=== PATIENT | male | born 1990 | race Caucasian/White ===

== ENCOUNTER 2022-04-09 16:47 | Emergency (ER) | payer MEDICAID, SELFPAY ==
--- NOTE | ~2022-04-09 | CT_ITS ---
EXAMINATION: CT ABDOMEN AND PELVIS WITHOUT CONTRAST CLINICAL INFORMATION: Right-sided flank pain, dysuria. COMPARISON: None TECHNIQUE: Multidetector volumetric imaging was performed from the superior aspect of the liver through the pubic symphysis. Sagittal and coronal reformatted images were obtained on the technologist's workstation. Plaque of intravenous and oral contrast limits visceral evaluation. This CT examination was performed using dose optimization techniques as appropriate, variously including the following: *Automated exposure control *Adjustment of mA and/or kV according to patient size (this includes techniques or standardized protocols for targeted exams where dose is matched to indication/reason for exam; i.e. extremities or head) *Use of iterative reconstruction technique DLP: 705 mGy-cm FINDINGS: LUNG BASES: The visualized lung bases are unremarkable. LIVER, GALLBLADDER, AND BILIARY TREE: Unremarkable. PANCREAS: Unremarkable. SPLEEN: Unremarkable. ADRENAL GLANDS: Unremarkable. KIDNEYS AND URETERS: The kidneys are normal in size, shape, and attenuation. No hydronephrosis, hydroureter, or calculi seen. No perinephric stranding. BLADDER: A 0.5 cm calculus is seen at or just distal to the right ureterovesical junction (image 74, series 3; image 45, series 6). GASTROINTESTINAL TRACT: The stomach and small bowel and appendix are unremarkable. The colon and rectum are unremarkable. ABDOMINAL WALL: No significant hernia is appreciated. LYMPH NODES: No lymphadenopathy. VASCULAR: Unremarkable. PELVIC VISCERA: Unremarkable. OSSEOUS STRUCTURES: L5-S1 moderate disc space narrowing. Mild disc space narrowing at L4-L5. The vertebral bodies are intact. CT/CT abdomen pelvis wo con IMPRESSION: 1. 0.5 cm radiopaque density at or just distal to the right ureterovesical junction without sequelae of obstruction in the right ureter and kidney system with a nonobstructing calculus. No other significant abnormality. Fleischner guidelines were followed.
[2022-04-09 16:53] VITALS: BP 130/78; PULSE 88; RESP 16; TEMP 36.6; O2SAT 97; BMI 29.5
[2022-04-09 17:15] LABS: Appearance Urine CLEAR; Color Urine YELLOW; Glucose Urine UA NEG (NEG); Leukocyte Esterase Urine NEG (NEG); Nitrite Urine NEG (NEG); Specific Gravity - Urine 1.025 (1.005-1.025); UACC Culture Trigger NO; Urine Blood 1+ (NEG); Urine Ketones 5 MG/DL (NEG); Urine Protein NEG (NEG-TRACE)
[2022-04-09 17:26] LABS: Mucus Urine TRACE /LPF; Squamous Epithelial Cell Urine TRACE /LPF; WBC Urine 0-2 /HPF (0-4)
--- NOTE | 2022-04-09 21:51 | ED_ITS ---
HPI - Male Genitourinary General Chief complaint: Urogenital-Male Stated complaint: ?kidney stone per urgent care Time Seen by Provider: 04/09/22 21:43 Source: patient Mode of arrival: ambulatory History of Present Illness HPI Narrative: 32 yo male with no medical history presents to the ER with 5-6 days of right- sided flank pain. He states the pain started in his right lower side, with 10/10 intensity. It has been coming and going for the last few days but he has been putting up going to the hospital. He states the pain has migrated into his suprapubic area and he now has burning upon urination. He has not noticed any blood in his urine. He denies any urethral discharge or concern for STI he has same sexual partner for the last 10 years. He denies any fever or chills, nausea, vomiting. MD Complaint: dysuria and other ( Right-sided flank pain) Onset (ago): day(s) Duration: progressively worsening Location: right flank Radiation: right inguinal region and abdomen Severity: severe Severity scale (1-10): 8 Quality: aching and burning Relieving factors: none Exacerbating factors: urination Associated symptoms: Reports dysuria Related Data Sexually active: Yes Previous Rx's Medication Instructions Recorded naproxen 500 mg tablet 500 mg PO BID PRN pain #20 tabs 04/09/22 prednisone 20 mg tablet 40 mg PO DAILY #8 tabs 04/09/22 tamsulosin 0.4 mg capsule (Flomax) 0.4 mg PO BEDTIME #7 caps 04/09/22 Allergies Allergy/AdvReac Type Severity Reaction Status Date / Time No Known Allergies Allergy Unverified 07/05/20 17:02 Review of Systems Review of Systems: Constitutional: No Fever, No Chills ENT/Mouth: No sore throat, No Rhinorrhea Cardiovascular: No Chest Pain, No SOB Respiratory: No Cough, No Sputum, No Wheezing, No dyspnea Gastrointestinal: No Nausea, No Vomiting, No Diarrhea, + abdominal Pain, No Hematochezia, No Melena Genitourinary: + Dysuria, No Urinary Frequency, No Hematuria Musculoskeletal: No joint pain, No Myalgias Skin: No Skin Lesions, No rash Neuro: No Weakness, No Numbness, No Dizziness, No Headache Psych: + Anxiety/Panic, No Depression Heme/Lymph: No Bruising, No Lymphadenopathy Endocrine: No Polyuria, No Polydipsia [facility] Social History Social History Alcohol intake: never Patient Tobacco Use Status: Former Tobacco user Use of substances other than those prescribed or required for medical reasons: Yes Substance Use Type: Marijuana Substance Use Frequency: Chronic Longstanding Advance Directives: No Advance Directives Information Provided: Yes Physical Exam Vital Signs: Vital Signs: Last Vital Signs Temp 97.8 F 04/09/22 16:53 Pulse 78 04/09/22 22:41 Resp 18 04/09/22 22:41 BP 135/81 04/09/22 22:41 Pulse Ox 98 04/09/22 22:41 O2 Del Method 04/09/22 22:41 BMI result Body Mass Index 29.5 Appearance: Alert. Oriented X3. No acute distress. appears well Eyes: Pupils equal, round and reactive to light. ENT: Pharynx normal. Neck: Normal inspection. Neck supple. CVS: Normal heart rate and rhythm. Pulses normal. Respiratory: No respiratory distress. Breath sounds normal. Abdomen: Soft with mild suprapubic tenderness. No right lower quadrant tenderness. No CVA tenderness.+BS x4. Skin: Skin warm and dry. Normal skin color. Normal skin turgor. No rashes. Extremities: No lower extremity edema. Neuro: Oriented X 3. Grossly normal, nonfocal Course Course Course Narrative: 32-year-old male presents to the ER with 5-6 days of right-sided flank pain that has migrated to suprapubic area along with dysuria. Concern for possible kidney stone. His urinalysis is positive for blood. He reports pain upon urination but has no evidence of urinary tract infection. PCR for chlamydia and gonorrhea was sent to the lab, he has no concern for STI. He is declining empiric treatment at this time. Will get CT scan for further evaluation of possible obstructing kidney stone. Reevaluation(s) Reevaluation #1: CT scan showing a 5 mm stone at the UVJ on the right. He is most likely going to pass on his own. Will give course of steroids, Flomax an NSAID. Will refer to Urology. He is comfortable, no vomiting or fevers. At this time is stable for discharge home with outpatient follow-up. Patient agrees with plan. MDM - Male Genitourinary Lab Data Result diagrams: 04/09/22 21:57 04/09/22 21:57 Labs: Lab Results 04/09/22 04/09/22 04/09/22 Range/Units 17:07 21:57 21:57 WBC 10.5 (4.8-10.8) X10*3/uL RBC 5.29 (4.60-5.80) X10*6/uL Hgb 15.3 (14.0-18.0) g/dl Hct 46.1 (42.0-52.0) % MCV 87.1 (80.0-98.0) fL MCH 28.9 (27.0-33.0) pg MCHC 33.2 (31.0-36.0) g/dl RDW 13.7 (11.0-16.0) % Plt Count 259 (160-400) X10*3/uL MPV 10.8 (9.4-12.4) fL Immature Gran % (Auto) 0.2 (0.0-0.4) % Neut % (Auto) 60.6 (45-73) % Lymph % (Auto) 30.1 (20-40) % Jones % (Auto) 7.2 (2-11) % Eos % (Auto) 1.6 (0-4) % Baso % (Auto) 0.3 (0-2) % Lymph # (Auto) 3.2 (1.2-4.9) X10*3/uL Jones # (Auto) 0.8 (0.1-1.2) X10*3/uL Eos # (Auto) 0.2 (0.0-0.4) X10*3/uL Baso # (Auto) 0.0 (0.0-0.2) X10*3/uL Abs Immat Gran (auto) 0.02 (0.00-0.03) X10*3/uL Absolute Neuts (auto) 6.3 (2.0-8.3) x10*3/uL Absolute Nucleated RBC 0.000 (0.0-0.012) X10*3/uL Nucleated RBC % (auto) 0.0 (0.0-0.2) /100WBC Sodium 139 (135-145) mmol/L Potassium 3.7 (3.3-5.1) mmol/L Chloride 103 (96-108) mmol/L Carbon Dioxide 26 (22-29) mmol/L Anion Gap 14 (12-20) BUN 15 (9-16) mg/dL Creatinine 0.87 (0.5-1.4) mg/dL Estim Creat Clear Calc 155.5 Estimated GFR > 60 Random Glucose 92 (60-115) mg/dL Calcium 10.0 (8.4-10.2) mg/dL Magnesium 2.0 (1.6-2.6) mg/dL Total Bilirubin 0.6 (0.0-1.0) mg/dL Direct Bilirubin 0.2 (0.0-0.5) mg/dL AST 20 (5-37) U/L ALT 17 (0-40) U/L Alkaline Phosphatase 65 (39-117) U/L Total Protein 7.9 (6.5-8.0) g/dL Albumin 4.9 (3.5-5.0) g/dL Urine Color YELLOW Urine Appearance CLEAR Urine pH 6.0 (5.0-8.0) Ur Specific [place] 1.025 (1.005-1.025) Urine Protein NEG (NEG-TRACE) MG/DL Urine Glucose (UA) NEG (NEG) MG/DL Urine Ketones 5 (NEG) MG/DL Urine Blood 1+ H (NEG) Urine Nitrite NEG (NEG) Ur Leukocyte Esterase NEG (NEG) Urine RBC 5-9 H (0) /HPF Urine WBC 0-2 (0-4) /HPF Ur Squamous Epith Cells TRACE /LPF Urine Bacteria NONE /LPF Urine Mucus TRACE /LPF Discharge Plan Discharge Clinical Impression: Right distal ureteral calculus Patient Disposition: Home, Self-Care Instructions: How to Strain Your Urine (ED), Ureteral Stones (ED) Additional Instructions: Your CT scan showed a 5 mm kidney stone, close down to the bladder. You will pass this on your own. Take the prescribed medications as directed. Follow-up with the urologist, name and number below. If you develop new or worsening symptoms call 911 or come back to the ER for further evaluation. Prescriptions: New tamsulosin [Flomax] 0.4 mg capsule 0.4 mg PO BEDTIME Qty: 7 0RF naproxen 500 mg tablet 500 mg PO BID PRN (Reason: pain) Qty: 20 0RF prednisone 20 mg tablet 40 mg PO DAILY Qty: 8 0RF Referrals: Omar Mix MD [Physician] -
[2022-04-09 22:02] LABS: MANUAL DIFF FLAG NO
[2022-04-09] MEDS: Ketorolac Tromethamine 30 MG/ML VIAL IVPUSH (22:02)
[2022-04-09] MEDS: 0.9 % Sodium Chloride 1,000 ML 999 ML IVCONT (22:03)
[2022-04-09 22:04] LABS: Basophils Percent Auto 0.3 % (0-2); Eosinophils Absolute Auto 0.2 X10*3/uL (0.0-0.4); Eosinophils Percent Auto 1.6 % (0-4); Hematocrit 46.1 % (42.0-52.0); Hemoglobin 15.3 g/dl (14.0-18.0); Imm Gran Abs Auto 0.02 X10*3/uL (0.00-0.03); Imm Gran Pct Auto 0.2 % (0.0-0.4); Lymphocytes Absolute Auto 3.2 X10*3/uL (1.2-4.9); Lymphocytes Percent Auto 30.1 % (20-40); Mean Corpuscular HGB Conc 33.2 g/dl (31.0-36.0); Mean Corpuscular Hemoglobin 28.9 pg (27.0-33.0); Mean Corpuscular Volume 87.1 fL (80.0-98.0); Mean Platelet Volume 10.8 fL (9.4-12.4); Monocytes Absolute Auto 0.8 X10*3/uL (0.1-1.2); Monocytes Percent Auto 7.2 % (2-11); Neutrophils Absolute Auto 6.3 x10*3/uL (2.0-8.3); Neutrophils Percent Auto 60.6 % (45-73); Platelet Count 259 X10*3/uL (160-400); Red Blood Count 5.29 X10*6/uL (4.60-5.80); Red Cell Distribution Width 13.7 % (11.0-16.0); White Blood Count 10.5 X10*3/uL (4.8-10.8)
[2022-04-09 22:21] LABS: Alanine Aminotransferase 17 U/L (0-40); Albumin Level 4.9 g/dL (3.5-5.0); Alkaline Phosphatase 65 U/L (39-117); Anion Gap 14 (12-20); Aspartate Amino Transferase 20 U/L (5-37); Bilirubin Direct 0.2 mg/dL (0.0-0.5); Bilirubin Total 0.6 mg/dL (0.0-1.0); Blood Urea Nitrogen 15 mg/dL (9-16); Carbon Dioxide 26 mmol/L (22-29); Chloride 103 mmol/L (96-108); Creatinine Clr Calc Pharmacy 155.5; Estimated Glomerular Filt Rate > 60; Glucose Random 92 mg/dL (60-115); Potassium 3.7 mmol/L (3.3-5.1); Sodium 139 mmol/L (135-145); Total Protein 7.9 g/dL (6.5-8.0)
[2022-04-09 22:41] VITALS: BP 135/81; PULSE 78; RESP 18; O2SAT 98
[2022-04-09] MEDS: Tamsulosin HCL 0.4 MG CAPSULE PO (23:09)
[2022-04-09] MEDS: predniSONE 10 MG TABLET 50 MG PO (23:09)
[2022-04-10 02:19] LABS: CT PCR NOT DETECTED (Not Detect.); NG PCR NOT DETECTED (Not Detect.)
== END 2022-04-09 23:19 | disposition home or self-care (01) ==
PROVIDERS: Physician Assistant; Emergency Provider Internal Medicine; PCP Internal Medicine
DX: N20.1 Calculus of ureter (principal); R30.0 Dysuria; Z87.891 Personal history of nicotine dependence; Z79.899 Other long term (current) drug therapy
CPT/HCPCS: 36415; 74176; 80048; 80076; 81001; 83735; 85025; 87491; 87591; 96361; 96374; 99284; J1885

== ENCOUNTER → 2022-04-22 10:06 | Outpatient (BNVA) | payer MEDICAID, SELFPAY | PROVIDERS: PCP Internal Medicine | DX: N41.9 Inflammatory disease of prostate, unspecified (principal); N20.0 Calculus of kidney | CPT/HCPCS: 99202 ==

== ENCOUNTER → 2022-05-23 09:43 | Outpatient (BNVA) | payer MEDICAID, SELFPAY | PROVIDERS: PCP Internal Medicine; Visit Provider Urology | DX: N41.9 Inflammatory disease of prostate, unspecified (principal); N41.1 Chronic prostatitis; N20.0 Calculus of kidney | CPT/HCPCS: 99212 ==

== ENCOUNTER 2022-05-27 11:20 | Emergency (ER) | payer MEDICAID, SELFPAY ==
--- NOTE | ~2022-05-27 | CT_ITS ---
EXAMINATION: CT ABDOMEN AND PELVIS WITHOUT CONTRAST CLINICAL INFORMATION: Flank pain with history of kidney stones COMPARISON: CT abdomen pelvis 04/09/2022 TECHNIQUE: Multidetector volumetric imaging was performed from the superior aspect of the liver through the pubic symphysis. Sagittal and coronal reformatted images were obtained on the technologist's workstation. This CT examination was performed using dose optimization techniques as appropriate, variously including the following: *Automated exposure control *Adjustment of mA and/or kV according to patient size (this includes techniques or standardized protocols for targeted exams where dose is matched to indication/reason for exam; i.e. extremities or head) *Use of iterative reconstruction technique DLP: 557 mGy-cm FINDINGS: LUNG BASES: The visualized lung bases are unremarkable. LIVER, GALLBLADDER, AND BILIARY TREE: The liver is mildly enlarged measuring 18.5 cm in greatest length. Normal in shape and attenuation. No focal hepatic lesion or biliary ductal dilatation is present. The gallbladder is unremarkable with no evidence of radiopaque gallstones, gallbladder wall thickening, or obvious pericholecystic inflammatory changes. PANCREAS: Unremarkable. SPLEEN: Unremarkable. ADRENAL GLANDS: Unremarkable. KIDNEYS AND URETERS: The previously seen stone at the right ureterovesical junction is no longer present. The kidneys are normal in size, shape, and attenuation. No hydronephrosis, hydroureter, or calculi seen. No perinephric stranding. BLADDER: Unremarkable. GASTROINTESTINAL TRACT: The small and large bowel are unremarkable aside from a few scattered colonic diverticula without diverticulitis. The appendix is unremarkable. ABDOMINAL WALL: No significant hernia is appreciated. LYMPH NODES: Normal. VASCULAR: Unremarkable. PELVIC VISCERA: Unremarkable. OSSEOUS STRUCTURES: Unremarkable. CT/CT abdomen pelvis wo con IMPRESSION: Previously seen stone at the right ureterovesical junction is no longer present. At this time, there are is no nephrolithiasis seen. Mild hepatomegaly. Fleischner guidelines were followed.
[2022-05-27 11:48] VITALS: BP 144/85; PULSE 98; RESP 18; TEMP 36.6; O2SAT 98; BMI 27.6
[2022-05-27 11:58] LABS: MANUAL DIFF FLAG NO
[2022-05-27 12:00] LABS: Basophils Percent Auto 0.7 % (0-2); Eosinophils Absolute Auto 0.4 X10*3/uL (0.0-0.4); Eosinophils Percent Auto 7.7 % (0-4); Hematocrit 45.7 % (42.0-52.0); Hemoglobin 15.3 g/dl (14.0-18.0); Imm Gran Abs Auto 0.02 X10*3/uL (0.00-0.03); Imm Gran Pct Auto 0.3 % (0.0-0.4); Lymphocytes Absolute Auto 1.5 X10*3/uL (1.2-4.9); Lymphocytes Percent Auto 26.7 % (20-40); Mean Corpuscular HGB Conc 33.5 g/dl (31.0-36.0); Mean Corpuscular Hemoglobin 28.9 pg (27.0-33.0); Mean Corpuscular Volume 86.4 fL (80.0-98.0); Mean Platelet Volume 10.2 fL (9.4-12.4); Monocytes Absolute Auto 0.7 X10*3/uL (0.1-1.2); Monocytes Percent Auto 12.2 % (2-11); Neutrophils Percent Auto 52.4 % (45-73); Platelet Count 231 X10*3/uL (160-400); Red Blood Count 5.29 X10*6/uL (4.60-5.80); Red Cell Distribution Width 13.7 % (11.0-16.0); White Blood Count 5.7 X10*3/uL (4.8-10.8)
[2022-05-27 12:12] LABS: Anion Gap 17 (12-20); Blood Urea Nitrogen 19 mg/dL (9-16); Calcium 9.8 mg/dL (8.4-10.2); Carbon Dioxide 24 mmol/L (22-29); Chloride 102 mmol/L (96-108); Estimated Glomerular Filt Rate > 60; Glucose Random 95 mg/dL (60-115); Potassium 4.1 mmol/L (3.3-5.1); Sodium 139 mmol/L (135-145)
[2022-05-27] MEDS: Lidocaine 4 % Patch ADH..PATCH 1 PATCH TRANSDERMA (14:41)
[2022-05-27] MEDS: Ibuprofen 400 MG TABLET PO (14:43)
[2022-05-27] MEDS: Acetaminophen 325 MG TABLET 975 MG PO (14:44)
--- NOTE | 2022-05-27 14:50 | ED_ITS ---
HPI - Male Genitourinary General Chief complaint: Urogenital-Male Stated complaint: Kidney stone sent by Dominguez Time Seen by Provider: 05/27/22 13:19 Source: patient Mode of arrival: ambulatory History of Present Illness HPI Narrative: 32-year-old male with presentation for continued pain in his groin area and states that he recently completed a course of antibiotics for prostatitis but states that it did not completely resolve his issue. He denies any fevers or chills or scrotal pain and has had the same partner and denies any penile discharge but states that Dr. Mix has placed him back on a course of Bactrim but he states his pain continues to be significant and the pain medication makes him sick to his stomach. Related Data Home Medications Medication Instructions Recorded Confirmed budesonide-formoterol HFA 160 2 puff PO 05/23/22 mcg-4.5 mcg/actuation aerosol inhaler (Symbicort) Previous Rx's Medication Instructions Recorded naproxen 500 mg tablet 500 mg PO BID PRN pain #20 tabs 04/09/22 prednisone 20 mg tablet 40 mg PO DAILY #8 tabs 04/09/22 tamsulosin 0.4 mg capsule (Flomax) 0.4 mg PO BEDTIME #7 caps 04/15/22 prednisone 20 mg tablet 20 mg PO DAILY 3 days #3 tabs 04/22/22 sulfamethoxazole 800 1 tab PO BID 14 days #28 tabs 04/22/22 mg-trimethoprim 160 mg tablet (Bactrim DS) prednisone 20 mg tablet 20 mg PO DAILY 3 days #3 tabs 05/23/22 sulfamethoxazole 800 1 tab PO BID 28 days #56 tabs 05/23/22 mg-trimethoprim 160 mg tablet (Bactrim DS) meloxicam 15 mg tablet 15 mg PO DAILY 30 days #30 tabs 05/24/22 oxycodone-acetaminophen 5 mg-325 1 tab PO Q8H PRN pain 3 days #14 05/24/22 mg tablet (Percocet) tabs doxycycline hyclate 100 mg capsule 100 mg PO BID 10 days #20 caps 05/27/22 oxycodone 5 mg capsule 5 mg PO BID PRN breakthrough pain 05/27/22 #4 caps Allergies Allergy/AdvReac Type Severity Reaction Status Date / Time No Known Allergies Allergy Verified 05/23/22 09:58 Review of Systems Review of Systems: Pertinent positives and negatives as stated in HPI 10 point review of systems is otherwise negative. [facility] Past Medical History Source: nursing notes reviewed Social History Social History Alcohol intake: never Patient Tobacco Use Status: Former Tobacco user Substance Use Type: Marijuana Advance Directives: No Advance Directives Information Provided: No Physical Exam Vital Signs: Vital Signs: Last Vital Signs Temp 98 F 05/27/22 11:48 Pulse 98 05/27/22 11:48 Resp 18 05/27/22 11:48 BP 144/85 H 05/27/22 11:48 Pulse Ox 98 05/27/22 11:48 O2 Del Method 05/27/22 11:48 BMI result Body Mass Index 27.6 VITAL SIGNS: Reviewed. GENERAL: Well developed, well nourished, in no acute distress. HEAD: Normocephalic/atraumatic EYES: PERRLA, EOMI EARS: Ext canals without abnormality OROPHARYNX: no oral lesions noted, posterior pharynx clear LUNGS: Normal breath sounds. No adventitious sounds or accessory muscle use. SpO2<98> CARDIOVASCULAR: Regular rate and rhythm without noted murmurs ABDOMEN: Soft, non-tender, non-distended with bowel sounds, no CVA tenderness MUSCULOSKELETAL: No tenderness, deformities, or effusions noted on gross inspection. EXTREMITIES: No cyanosis, clubbing or edema. SKIN: Inspection of the skin reveals no rashes NEUROLOGIC: Alert and oriented x 4. Strength and sensation to light touch were grossly intact x 4. Course Course Course Narrative: 32-year-old male with history and clinical presentation after review of all in vestigations most consistent with prostatitis, suspect that may be the course of Bactrim did not completely eradicate the underlying infection and despite having been restarted on Bactrim after a few days patient is still visibly uncomfortable and will switch the antibiotics from Bactrim over 2 doxycycline and prior STI testing was negative. Patient denies any scrotal pain or penile discharge. This plan and the results were discussed with him at bedside and he is otherwise stable for discharge to home. MDM - Male Genitourinary Lab Data Result diagrams: 05/27/22 11:53 05/27/22 11:53 Labs: Lab Results 08/09/22 08/09/22 Range/Units 11:53 11:53 WBC 5.7 (4.8-10.8) X10*3/uL RBC 5.29 (4.60-5.80) X10*6/uL Hgb 15.3 (14.0-18.0) g/dl Hct 45.7 (42.0-52.0) % MCV 86.4 (80.0-98.0) fL MCH 28.9 (27.0-33.0) pg MCHC 33.5 (31.0-36.0) g/dl RDW 13.7 (11.0-16.0) % Plt Count 231 (160-400) X10*3/uL MPV 10.2 (9.4-12.4) fL Immature Gran % (Auto) 0.3 (0.0-0.4) % Neut % (Auto) 52.4 (45-73) % Lymph % (Auto) 26.7 (20-40) % Kinney % (Auto) 12.2 H (2-11) % Eos % (Auto) 7.7 H (0-4) % Baso % (Auto) 0.7 (0-2) % Lymph # (Auto) 1.5 (1.2-4.9) X10*3/uL Kinney # (Auto) 0.7 (0.1-1.2) X10*3/uL Eos # (Auto) 0.4 (0.0-0.4) X10*3/uL Baso # (Auto) 0.0 (0.0-0.2) X10*3/uL Abs Immat Gran (auto) 0.02 (0.00-0.03) X10*3/uL Absolute Neuts (auto) 3.0 (2.0-8.3) x10*3/uL Absolute Nucleated RBC 0.000 (0.0-0.012) X10*3/uL Nucleated RBC % (auto) 0.0 (0.0-0.2) /100WBC Sodium 139 (135-145) mmol/L Potassium 4.1 (3.3-5.1) mmol/L Chloride 102 (96-108) mmol/L Carbon Dioxide 24 (22-29) mmol/L Anion Gap 17 (12-20) BUN 19 H (9-16) mg/dL Creatinine 1.10 (0.5-1.4) mg/dL Estim Creat Clear Calc 111.0 Estimated GFR > 60 Random Glucose 95 (60-115) mg/dL Calcium 9.8 (8.4-10.2) mg/dL Discharge Plan Discharge Clinical Impression: Prostatitis Patient Disposition: Home, Self-Care Instructions: Prostatitis (ED) Additional Instructions: 1. Resume all other home medications as prescribed. 2. Stop taking the Bactrim and start the doxycycline by taking the 1st pill this evening. 3. Follow-up with Urology. Return to the ER for worsening symptoms. Prescriptions: New doxycycline hyclate 100 mg capsule 100 mg PO BID 10 Days Qty: 20 0RF Rx Instructions: 1. 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 2. Recommend that you utilize long sleeves as much as possible when out in the sun. oxycodone 5 mg capsule 5 mg PO BID PRN (Reason: breakthrough pain) Qty: 4 0RF Rx Instructions: Partial Fill upon patient request. No Action tamsulosin [Flomax] 0.4 mg capsule 0.4 mg PO BEDTIME Qty: 7 0RF oxycodone-acetaminophen [Percocet] 5-325 mg tablet 1 tab PO Q8H PRN (Reason: pain) 3 Days Qty: 14 0RF Rx Instructions: Partial Fill upon patient request. meloxicam 15 mg tablet 15 mg PO DAILY 30 Days Qty: 30 0RF naproxen 500 mg tablet 500 mg PO BID PRN (Reason: pain) Qty: 20 0RF prednisone 20 mg tablet 40 mg PO DAILY Qty: 8 0RF budesonide-formoterol [Symbicort] 160-4.5 mcg/actuation HFA aerosol inhaler 2 puff PO sulfamethoxazole-trimethoprim [Bactrim DS] 800-160 mg tablet 1 tab PO BID 28 Days Qty: 56 0RF prednisone 20 mg tablet 20 mg PO DAILY 3 Days Qty: 3 0RF prednisone 20 mg tablet 20 mg PO DAILY 3 Days Qty: 3 0RF sulfamethoxazole-trimethoprim [Bactrim DS] 800-160 mg tablet 1 tab PO BID 14 Days Qty: 28 0RF Referrals: [facility] [Primary Care Provider] - Omar Mix MD [Physician] -
== END 2022-05-27 15:13 | disposition home or self-care (01) ==
PROVIDERS: Emergency Provider Student in an Organized Health Care Education/Training Program
DX: N41.9 Inflammatory disease of prostate, unspecified (principal); R10.30 Lower abdominal pain, unspecified; F12.90 Cannabis use, unspecified, uncomplicated; Z87.891 Personal history of nicotine dependence
CPT/HCPCS: 36415; 74176; 80048; 85025; 99283; 99284

== ENCOUNTER 2022-10-29 13:05 | Outpatient (REF) | payer MEDICAID, SELFPAY ==
--- NOTE | 2022-10-29 10:30 | EMG_ITS ---
Please see scanned EMG / Nerve Conduction Report. MTDD
== END 2022-10-29 13:06 | disposition home or self-care (01) ==
LOC: HO.NEURO 13:05
PROVIDERS: PCP Internal Medicine; Visit Provider Internal Medicine
DX: M25.522 Pain in left elbow (principal)
CPT/HCPCS: 95885; 95910

== ENCOUNTER → 2022-11-10 12:30 | Outpatient (BNVA) | payer MEDICAID, SELFPAY | PROVIDERS: PCP Internal Medicine; Visit Provider Physician Assistant | DX: M77.12 Lateral epicondylitis, left elbow (principal) | CPT/HCPCS: 99202; J1020 ==

== ENCOUNTER → 2022-11-25 11:30 | Outpatient (BNVA) | payer MEDICAID, SELFPAY | PROVIDERS: PCP Internal Medicine; Visit Provider Physician Assistant | DX: M77.12 Lateral epicondylitis, left elbow (principal) | CPT/HCPCS: 99212 ==

== ENCOUNTER → 2022-12-15 10:26 | Outpatient (BNVA) | payer MEDICAID, SELFPAY | PROVIDERS: PCP Internal Medicine; Visit Provider Orthopaedic Surgery | DX: M77.12 Lateral epicondylitis, left elbow (principal) | CPT/HCPCS: 99212 ==

== ENCOUNTER 2022-12-17 14:19 | Outpatient (REF) | payer MEDICAID, SELFPAY | END 2022-12-17 14:20 | disposition home or self-care (01) | LOC: HO.MRI 14:19 | PROVIDERS: PCP Internal Medicine; Visit Provider Physician Assistant | DX: Z13.89 Encounter for screening for other disorder (principal) ==

== ENCOUNTER → 2023-02-24 12:52 | Outpatient (BNVA) | payer MEDICAID, SELFPAY | PROVIDERS: PCP Internal Medicine; Visit Provider Physician Assistant | DX: M77.12 Lateral epicondylitis, left elbow (principal) | CPT/HCPCS: 20551; 99212; J1040 ==

== ENCOUNTER 2023-06-16 15:10 | Outpatient (AMB) | payer MEDICAID, SELFPAY ==
--- NOTE | 2023-06-16 15:29 | MHC.OFFVIS ---
Intake Vital Signs 06/16/23 15:31 Height 6 ft 2 in Weight 215 lb BMI 27.6 Handedness Right Intake Visit Reasons: ov- Left arm pain/ elbow Intake Note: Tyree is a 32 year old right hand dominant male who presents today for a follow up for his left elbow pain, last injection 02/24/23. Patient reports his pain as gotten worse and it has prevented him from working out. He states having numbness and tingling since his EMG testing. Allergies No Known Allergies Allergy (Verified 02/24/23 13:00) HPI ov- Left arm pain/ elbow HPI Details 33-year-old right hand dominant male who presents in the office today for a follow up of left elbow pain. The patient had a cortisone injection in the left elbow on 02/24/2023. The patient reports his pain has gotten worse. He states his pain is preventing him from working out. He confirms numbness and tingling since his EMG test. The patient states he has a burning sensation that he describes as ?being burnt by a friction paint machine tender?. He also states he has a cold sensation that is extreme. [facility] Social History Alcohol intake: never Patient Tobacco Use Status: Former Tobacco user Substance Use Type: Marijuana Current occupational status: employed Current occupation: construction/snow removal, right handed Review of Systems Const All systems reviewed & are unremarkable except as noted in HPI and below Physical Exam Vital Signs: BMI result Body Mass Index 27.6 Const General: cooperative, healthy appearing and no acute distress Resp Effort & Inspection: normal respiratory effort and able to speak in complete sentences Cardio Rate: regular rate Peripheral pulses: Peripheral pulses 2+ throughout GI Palpation (GI): Soft to palpation Skin Lesions: no lesions Rashes: no rashes Extrem Other: Left forearm: Hypersensitive dorsal aspect. Associated numbness and tingling. 4/5 strength with resisted wrist extension. No tenderness to palpation medial or lateral epicondyle, olecranon, or distal radius. Reported sensory deficits ?liking being burnt by a friction paint machine tender or feels of cold sensation that to the extreme? Assessment & Plan Assessment & Plan (1) Complex regional pain syndrome of left upper extremity: Code(s): G90.512 - Complex regional pain syndrome I of left upper limb Plan Mr. Vázquez is a 33-year-old right hand dominant male who presents in the office today for a follow up of left elbow pain. The patient had a cortisone injection in the left elbow on 02/24/2023. The patient reports his pain has gotten worse. He states his pain is preventing him from working out. He confirms numbness and tingling since his EMG test. The patient states he has a burning sensation that he describes as ?being burnt by a friction paint machine tender?. He also states he has a cold sensation that is extreme. Pain is constant. He has had an EMG study with was negative for any nerve entrapment. He reports that after the EMG study his symptoms worsened however, he has not been able to followup regularly because his mother was diagnosed with PLS, a rare form of ALS, and he has been caring for her. At this point, I believe that the patient may be suffering from complex regional pain syndrome and therefore, I have placed a referral to Pain Management for further evaluation and treatment of the left upper extremity. Follow up with Orthopedics will be PRN, or sooner if needed. Orders: Referrals Pain Management Referral G90.512 - Complex regional pain syndrome I of left upper limb Patient Instructions: Scribed for Edith Lucia PA-C by Miriam Mccarthy emergency medical service manager, on 06/16/2023 at 3:15 pm, EST. Coding Level of Care Code Est Pt Level 3 (52426) Diagnoses Complex regional pain syndrome of left upper extremity G90.512
[2023-06-16 15:31] VITALS: BMI 27.6
== END 2023-06-16 16:11 | disposition home or self-care (01) ==
PROVIDERS: PCP Internal Medicine; Visit Provider Physician Assistant
DX: G90.512 Complex regional pain syndrome I of left upper limb (principal)

== ENCOUNTER → 2023-06-16 15:10 | Outpatient (BNVA) | payer MEDICAID, SELFPAY | PROVIDERS: PCP Internal Medicine; Visit Provider Physician Assistant | DX: G90.512 Complex regional pain syndrome I of left upper limb (principal) | CPT/HCPCS: 99212; 99213 ==

== ENCOUNTER 2023-09-01 20:21 | Emergency (ER) | payer MEDICAID, SELFPAY ==
--- NOTE | ~2023-09-01 | XR_ITS ---
EXAMINATION: XR ELBOW, LEFT CLINICAL INFORMATION: Left elbow pain COMPARISON: None available. TECHNIQUE: AP, lateral, and oblique views of the left elbow. FINDINGS: No acute visible fracture or dislocation. Joint space alignment are maintained. No large elbow joint effusion. Slight soft tissue prominence overlying the dorsum of the distal humerus. XR/XR elbow LT min 3V IMPRESSION: 1. No acute visible fracture or dislocation. 2. Slight soft tissue prominence overlying the dorsum of the distal humerus.
[2023-09-01 20:30] VITALS: BP 154/85; PULSE 83; RESP 16; TEMP 37.7; O2SAT 100; BMI 28.2
--- NOTE | 2023-09-01 20:33 | ED_ITS ---
HPI - General Adult General Chief complaint: Extremity Injury, Upper Stated complaint: L elbow infected bursitis? Time Seen by Provider: 09/02/23 00:39 Source: patient Mode of arrival: ambulatory History of Present Illness HPI narrative: Patient with longstanding pain in the left elbow seen orthopedics had steroid shot diagnose as tennis elbow comes and it has noticed slight redness in the elbow thought maybe bursitis. 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 Related Data Home Medications Medication Instructions Recorded Confirmed budesonide-formoterol HFA 160 2 puff PO 05/23/22 mcg-4.5 mcg/actuation aerosol inhaler (Symbicort) albuterol sulfate 90 mcg/actuation 2 puff inhalation Q4-6H PRN 11/10/22 aerosol inhaler (Proventil HFA) ferrous sulfate 325 mg (65 mg 325 mg PO DAILY 11/10/22 iron) tablet tadalafil 5 mg tablet 5 mg PO DAILY 11/10/22 Previous Rx's Medication Instructions Recorded naproxen 500 mg tablet 500 mg PO BID PRN pain #20 tabs 04/09/22 tamsulosin 0.4 mg capsule (Flomax) 0.4 mg PO BEDTIME #7 caps 04/15/22 prednisone 20 mg tablet 20 mg PO DAILY 3 days #3 tabs 04/22/22 sulfamethoxazole 800 1 tab PO BID 14 days #28 tabs 04/22/22 mg-trimethoprim 160 mg tablet (Bactrim DS) prednisone 20 mg tablet 20 mg PO DAILY 3 days #3 tabs 05/23/22 sulfamethoxazole 800 1 tab PO BID 28 days #56 tabs 05/23/22 mg-trimethoprim 160 mg tablet (Bactrim DS) meloxicam 15 mg tablet 15 mg PO DAILY 30 days #30 tabs 05/24/22 tramadol 50 mg tablet 50 mg PO Q8H PRN pain #15 tabs 06/11/22 diclofenac sodium 1 % topical gel 2 g topical BID #100 grams 09/02/23 (Aleve (diclofenac)) ibuprofen 600 mg tablet 600 mg PO Q6H PRN fever or pain 09/02/23 #30 tabs Allergies Allergy/AdvReac Type Severity Reaction Status Date / Time No Known Allergies Allergy Verified 02/24/23 13:00 Review of Systems 2 Review of Systems: Yes all other systems are reviewed and are negative [facility] Social History Social History Alcohol intake: never Patient Tobacco Use Status: Former Tobacco user Substance Use Type: Marijuana Advance Directives: No Advance Directives Information Provided: No Current occupational status: employed Current occupation: construction/snow removal, right handed Physical Exam ED Vital Signs: Vital Signs - 24 hr 09/01/23 20:30 Temperature 99.9 F Pulse Rate 83 Respiratory Rate 16 Blood Pressure 154/85 H Pulse Oximetry 100 Oxygen Delivery Method Room Air BMI result Body Mass Index 28.2 Extrem Shoulder/upper arm images: 2 1. Tenderness at lateral epicondyle area increased pain on pronation no signs of bursitis small abrasion at the elbow good range of movement Course Course Course Narrative: This is an RME: Additional HPI, ROS, PE not included below will be deferred to primary provider. 33 yo m presents w/ L elbow pain X years worsening today. Tells me i think i have an infected bursitis . 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 Discharge Plan Discharge Clinical Impression: Left tennis elbow Patient Disposition: Home, Self-Care Instructions: Tennis Elbow (ED) Additional Instructions: Limit left elbow activity as advised Apply diclofenac gel twice daily for pain relief Ibuprofen for pain Wear tennis elbow band as advised Prescriptions: New diclofenac sodium [Aleve (diclofenac)] 1 % gel 2 g topical BID Qty: 100 0RF Rx Instructions: apply to elbow, ibuprofen 600 mg tablet 600 mg PO Q6H PRN (Reason: fever or pain) Qty: 30 0RF No Action tamsulosin [Flomax] 0.4 mg capsule 0.4 mg PO BEDTIME Qty: 7 0RF meloxicam 15 mg tablet 15 mg PO DAILY 30 Days Qty: 30 0RF tramadol 50 mg tablet 50 mg PO Q8H PRN (Reason: pain) Qty: 15 0RF naproxen 500 mg tablet 500 mg PO BID PRN (Reason: pain) Qty: 20 0RF budesonide-formoterol [Symbicort] 160-4.5 mcg/actuation HFA aerosol inhaler 2 puff PO sulfamethoxazole-trimethoprim [Bactrim DS] 800-160 mg tablet 1 tab PO BID 28 Days Qty: 56 0RF prednisone 20 mg tablet 20 mg PO DAILY 3 Days Qty: 3 0RF prednisone 20 mg tablet 20 mg PO DAILY 3 Days Qty: 3 0RF sulfamethoxazole-trimethoprim [Bactrim DS] 800-160 mg tablet 1 tab PO BID 14 Days Qty: 28 0RF albuterol sulfate [Proventil HFA] 90 mcg/actuation HFA aerosol inhaler 2 puff inhalation Q4-6H PRN tadalafil 5 mg tablet 5 mg PO DAILY ferrous sulfate 325 mg (65 mg iron) tablet 325 mg PO DAILY
[2023-09-02 00:45] VITALS: BP 145/80; PULSE 80; RESP 18; TEMP 36.6; O2SAT 99
== END 2023-09-02 00:55 | disposition home or self-care (01) ==
PROVIDERS: Emergency Provider Internal Medicine; PCP Internal Medicine
DX: M77.12 Lateral epicondylitis, left elbow (principal)
CPT/HCPCS: 73080; 99283; 99284

== ENCOUNTER 2023-11-02 14:07 | Outpatient (AMB) | payer MEDICAID, SELFPAY ==
--- NOTE | 2023-11-02 14:10 | A.OFFVIS_ITS ---
Intake Vital Signs 11/02/23 14:17 Height 6 ft 2 in Weight 220 lb BMI 28.2 Intake Visit Reasons: OV - LT elbow injection, last inj 02/24/23 Intake Note: Tyree is a 33 year old right hand dominant male who presents today for a follow up for his left elbow pain, last injection 02/24/23. Patient reports his pain has been increasing since July, stating tenderness to the touch. He was not able to start OT however he will be starting OT at [facility] in [place]. He is requesting to repeat injection if possible. Allergies No Known Allergies Allergy (Verified 11/02/23 14:17) HPI OV - LT elbow injection, last inj 02/24/23 HPI Details 33-year-old right hand dominant male who presents in the office today for a follow up of left elbow pain. The patient had a cortisone injection in the left elbow on 02/24/2023. I last saw that patient in the office on 06/16/2023 when he was referred to Pain Management for further evaluation of his pain. It was believed that the patient may be suffering from complex regional pain syndrome. He presented to the ED on 09/01/2023 with erythema. He was instructed to limited his left elbow activities. He was prescribed Diclofenac gel BID and Ibuprofen 600 mg Q6H PRN. While in the office today the patient reports his pain has increased since 07/2023 with tenderness to palpation. He states he was unable to attend occupational therapy prior to today?s appointment, however, he states he will be attending occupational therapy at [facility] in [place]. He would like a repeat cortisone injection while in the office. [facility] Social History Alcohol intake: never Patient Tobacco Use Status: Former Tobacco user Substance Use Type: Marijuana Current occupational status: employed Current occupation: construction/snow removal, right handed Review of Systems Const All systems reviewed & are unremarkable except as noted in HPI and below Physical Exam Vital Signs: BMI result Body Mass Index 28.2 Const General: cooperative and no acute distress Orientation/consciousness: patient oriented x3 Resp Effort & Inspection: normal respiratory effort and able to speak in complete sentences Cardio Rate: regular rate Peripheral pulses: Peripheral pulses 2+ throughout GI Palpation (GI): Soft to palpation Skin Lesions: no lesions Rashes: no rashes Neuro General: patient oriented x3 Extrem Other: Left elbow: Normal to inspection. No ecchymosis, erythema, or edema. No tenderness to palpation over the olecranon. No tenderness to the medial epicondyle. Slight tenderness to palpation over the lateral epicondyle. There is an area two inches proximal from the distal radius where if the patient extends at the wrist you can palpably feel the extensor moving over an area of inflammation. NVI. Psych Mental Status: mental status grossly normal Office Procedures Joint Injection/Drain Joint Injection/Drain Primary Site: left tennis elbow Prep: site was prepped using aseptic technique, ethochloride spray was applied and injection warnings given Injected: 40 mg of, DepoMedrol and other (2cc of 2% plain lido ) Approach Used: other (lateral epicondyle) Procedure: The patient tolerated the procedure well, but had some pain with the injection and there was some relief with the local anesthesia Coding 14193 - Epicondyle Procedure code (CPT) selection complete Assessment & Plan Assessment & Plan (1) Lateral epicondylitis, left elbow: Code(s): M77.12 - Lateral epicondylitis, left elbow Plan Mr. Vázquez is a 33-year-old right hand dominant male who presents in the office today for a follow up of left elbow pain. The patient had a cortisone injection in the left elbow on 02/24/2023. I last saw that patient in the office on 06/16/2023 when he was referred to Pain Management for further evaluation of his pain. It was believed that the patient may be suffering from complex regional pain syndrome. He presented to the ED on 09/01/2023 with erythema. He was instructed to limited his left elbow activities. He was prescribed Diclofenac gel BID and Ibuprofen 600 mg Q6H PRN. While in the office today the patient reports his pain has increased since 07/2023 with tenderness to palpation. He states he was unable to attend occupational therapy prior to today?s appointment, however, he states he will be attending occupational therapy at [facility] in [place]. He would like a repeat cortisone injection while in the office. The patient was offered a cortisone injection in the left elbow with 40 mg of DepoMedrol. The patient was explained the risk, benefits, and alternatives to receiving this injection. After receiving consent for the injection, the patient had the procedure done while in office today. The patient tolerated the procedure well with no complications. Follow up will be PRN, or sooner if needed. Patient Instructions: Scribed for Edith Lucia PA-C by Miriam Mccarthy medical interpreter, on 11/02/2023 at 1:55 pm, EST. Coding Level of Care Code Est Pt Level 3 (82497) Diagnoses Lateral epicondylitis, left elbow M77.12 CPT Codes Coding - Joint 2: 24454 - Epicondyle ([id number])
[2023-11-02 14:17] VITALS: BMI 28.2
== END 2023-11-02 14:42 | disposition home or self-care (01) ==
PROVIDERS: PCP Internal Medicine; Visit Provider Physician Assistant
DX: M77.12 Lateral epicondylitis, left elbow (principal)
CPT/HCPCS: 20550; 99213

== ENCOUNTER → 2023-11-02 14:07 | Outpatient (BNVA) | payer MEDICAID, SELFPAY | PROVIDERS: PCP Internal Medicine; Visit Provider Physician Assistant | DX: M77.12 Lateral epicondylitis, left elbow (principal) | CPT/HCPCS: 20550; 99212; J1020 ==

== ENCOUNTER 2024-03-08 13:09 | Emergency (ER) | payer OTHER, MEDICAID, SELFPAY ==
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
[2024-03-08 13:13] VITALS: BP 141/69; PULSE 84; RESP 16; TEMP 37.2; O2SAT 98; BMI 29.6
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
[2024-03-08 15:16] VITALS: BP 151/87; PULSE 79; RESP 19; TEMP 36.6; O2SAT 97
[2024-03-08 15:25] VITALS: BP 122/69; PULSE 71; RESP 20; TEMP 36.6; O2SAT 99
== END 2024-03-08 15:26 | disposition home or self-care (01) ==
PROVIDERS: Emergency Provider Emergency Medicine; PCP Internal Medicine
DX: S20.212A Contusion of left front wall of thorax, initial encounter (principal); M54.9 Dorsalgia, unspecified; V49.40XA Driver injured in collision with unspecified motor vehicles in traffic accident, initial encounter; Y93.9 Activity, unspecified; Y92.410 Unspecified street and highway as the place of occurrence of the external cause; Y99.9 Unspecified external cause status
CPT/HCPCS: 72070; 72100; 73060; 73080; 73090; 99282; 99283

== ENCOUNTER → 2025-06-14 13:03 | Outpatient (REF) | payer OTHER, SELFPAY ==
--- NOTE | 2025-06-14 13:09 | CA_ITS ---
Transthoracic Echocardiogram Patient (Last, First, Middle): Tyree Vázquez H Gender: M Date of : 1990 Age: 35 Procedure Date: 06/14/2025 Procedure Type: Transthoracic Echocardiogram Location: OP Height: 187.96 cm Weight: 83.92 kg BSA: 2.10 m2 Heart Rate: bpm BP: 120 / 60 mmHg Water Technician: NILSA Referring MD: Amarilis DEAN Symptoms: PECTUS EXCAVATUM Study Quality: Adequate ECG Rhythm: Sinus Conclusions: - The left ventricular systolic function is normal. The calculated ejection fraction is 60% by biplane method. - No obvious valvular pathology seen on this study. Findings Left Ventricle Normal left ventricular cavity size. There is normal left ventricular wall thickness. The left ventricular systolic function is normal. The calculated ejection fraction is 60% by biplane method. There is no evidence of regional wall motion abnormalities. Diastolic function is normal for age. Right Ventricle Mildly increased right ventricular cavity size. There is normal right ventricular systolic function. Atria The left atrium is mildly dilated. The right atrium is normal in size. Aortic Valve There is a normal trileaflet aortic valve. There is no aortic valve stenosis. There is no aortic valve regurgitation. Mitral Valve The mitral valve appears normal. There is no mitral valve regurgitation. There is no mitral valve stenosis. Pulmonic Valve The pulmonic valve is likely normal. Tricuspid Valve There is trace tricuspid valve regurgitation. There is no evidence of pulmonary hypertension. Great Vessels The aorta was not well visualized. The sinuses of valsalva and asc aorta are normal in size. Venous The inferior vena cava is dilated and collapses greater than 50% with inspiration. Pericardium/Pleural There is no evidence of pericardial effusion. Prior Study Comparison No prior study available for comparison. Recommendations, Care & Conclusions No obvious valvular pathology seen on this study. Measurements 2D Linear Measurements IVSd: 1.07 0.6-0.9/0.6-1.0 cm LVIDd: 4.71 3.9-5.3/4.2-5.9 cm LVIDd Index: 2.24 2.4-3.2/2.2-3.1 cm/m2 LVIDs: 2.96 2.0-3.6 cm LVPWd: 0.88 0.7-1.1 cm LA Diam: 4.10 2.7-3.8/3.0-4.0 cm LAIDs Index: 1.95 1.5-2.3 cm/m2 LV Mass: 197.87 67-162/88-224 g LV Mass Index: 94.22 43-95/49-115 g/m2 LVOT Diam: 2.80 3.0+(-)1.3 cm 2D Systolic Function EF 4C: 53.90 >55% EF 2C: 63.10 >55% EF BiP: 59.60 >55% Mitral Valve MV Pk E: 0.92 MV PK A: 0.57 MV Decel Time: 244.00 E/A: 1.60 E'Lateral: 16.10 E'Medial: 12.10 E/E' Med: 7.60 E/E' Lat: 5.70 PHT: 71.00 MVA PHT: 3.10 Decel Valencia: 3.76 Aortic Valve AoV Pk Ariel: 1.33 AoV Mn Ariel: 0.92 AoV VTI: 0.28 AoV Pk Grad: 7.00 Aov Mn Grad: 4.00 FREDDY Cont.VTI: 6.59 LVOT LVOT Pk Ariel: 1.27 LVOT Mn Ariel: 0.88 LVOT VTI: 0.29 LVOT Pk Grad: 6.00 LVOT Mn Grad: 4.00 LVOT Diam: 2.80 LVOT Area: 6.16 Diastolic Function MV Pk E: 0.92 MV Pk A: 0.57 E/A: 1.60 E'Medial: 12.10 E/E' Med: 7.60 E' Laterial: 16.10 E/E' Lat: 5.70 Right Ventricle TAPSE (mm): 24.90 TVS' Ariel: 14.60 Tricuspid Valve TR Pk Ariel: 2.44 TR Pk Grad: 24.00 RA Press: 8.00 RVSP: 32.00 Great Vessels Aorta Sinus of Valsalva: 3.31 2.0-3.5 cm Ao Asc: 3.30 2.1-3.4 cm Ao Arch: 2.70 Updated in Other Vendor System with Status of Final Jaswant Woodall MD electronically signed on 06/15/2025 12:02:19 PM with status of Final
--- OUTSIDE RECORDS SUMMARY | 2025-06-14 13:34 | XMS_ITS | Clinical Summary ---
Author Organization [facility] Address [address] [place] [phone] Phone Care Team Providers Care Director Of Research Name Role Phone [facility] Primary Care Provider Unavailable Allergies No known active allergies Medications No known medications Active Problems No known active problems Social History Tobacco Use Types Packs/Day Years Used Date Smoking Tobacco: Never Assessed Education Answer Date Recorded Are you interested in more education? Not on harry e 08/04/2023 Are you concerned about learning? Not on file 08/04/2023 No 08/04/2023 No 08/04/2023 Digital Access Answer Date Recorded No 08/04/2023 No 08/04/2023 Reliable internet access at home? Not on file 08/04/2023 Device with a working camera? Not on file Sex and Gender Information Value Date Recorded Sex Assigned at Not on file Legal Sex Male 10:33 AM EDT Gender Identity Not on file Sexual Orientation Not on file Plan of Treatment Health Maintenance Due Date Last Done Comments Adult Td,Tdap Booster 1990 LIPID PANEL 1989 DEPRESSION SCREENING 2001 SMOKING Hx and SMOKELESS TOB ACCO SCREENING 2002 HEPATITIS C SCREENING 2007 HIV ONE-TIME SCREENING (18-6 5 YEARS) 2007 COVID-19 VACCINE (2023-2 5 season) 2024 INFLUENZA VACCINE (#1) 2025 HEPATITIS A VACCINES Aged Out No long er eligible based on patient's age to complete this topic HIB VACCINES Aged Out No longer eligi ble based on patient's age to complete this topic MENINGOCOCCAL VACCINES (ACWY) Aged Out No longer eligible based on patient's age to complete this topic MENINGOCOCCAL VACCINES (B) Aged Out N o longer eligible based on patient's age to complete this topic PNEUMOCOCCAL VACCINES (0-49 years) Aged Out No longer eligible based on patient's age to complete this topic Medical Devices Not on file [place] [address] [place] [address] [facility] [address] [facility] C[address] [facility] C3 ACO Care Teams Director Of Research Relationship Specialty Start Date End Date [place] PCP - General 02/11/23 Additional Source Comments The information contained in this document represents components of the legal health record. It is not the complete legal health record.[facility]
--- OUTSIDE RECORDS SUMMARY | 2025-06-14 13:34 | XMS_ITS | Clinical Summary ---
Author Organization [employer] Address [address] [place] [address] Care Team Providers Care Steam Turbine Assembler Name Role Phone Andi Daly MD Primary Care Prov ider Allergies No known active allergies Medications * This document contains information received from the source organization and may not represent a complete record from that organization. albuterol 108 (90 Base) MCG/ACT inhaler TAKE 2 PUFFS BY MOUTH EVERY 4-6 HOURS NEEDED 6.7 g 2 3 Active albuterol 108 (90 Base) MCG/ACT inhaler TAKE 2 PUFFS BY MOUTH EVERY 4-6 HOURS NEEDED 6.7 g 2 3 Active Blood Pressure kit 1 kit in the morning. 1 kit 3 Active tadalafil (Cialis) 5 MG tablet Take 5 mg by mouth in the morning. 3 Active ibuprofen 800 MG tablet TAKE 1 TABLET BY MOUTH 3 TIMES A DAY WITH FOOD NEEDED FOR PAIN 90 tablet 2 4 Active diclofenac (Cataflam) 50 MG tablet Take 1 tablet (50 mg) by mouth 3 times daily. 90 tablet 4 Active fluticasone (Flonase Sensimist) 27.5 MCG/SPRAY nasal sprayIndication s:Acute cough,Seasonal allergies Administer 1-2 sprays into each nostril Once per day. 10 g 2 4 08/16/20 25 Active fexofenadine (Rere) 180 MG tabletIndicatio ns:Seasonal allergies TAKE 1 TAB (180MG) BY MOUTH IF NEEDED EACH DAY (ALLERGIES). 90 tablet 1 5 Active Active Problems Problem Noted Date Diagnosed Date Lateral epicondylitis of left elbow 03/28/2024 Assessment & Plan (03/28/2024 12:15 PM EDT): Ordering an MRI of Left Elbow for further investigation. Prescribing Diclofenac for symptoms. Referring to Orthopaedic Surgery for further treatment. Relevant Medications Diclofenac (Cataflam) 50 MG Tablet Left elbow tendonitis 09/02/2023 Depression, unspecified 03/06/2023 Assessment & Plan (03/06/2023 12:39 PM EDT): Assessment: Tyree was engaged with active reflective listening and open-ended questions. Assessed symptoms, risks, and social supports with direct questions. Discussed current symptoms intensity and frequency. Emotions were normalized and validated. Tyree identified playing music and working out as coping mechanisms and protective factors. Provided psychoeducation around coping skills to manage anxiety and depressive sxs. Discussed OP therapy and he agreed for me to submit referral this time. I also submitted Medication Management referral. Provided education around integrated medicine and the options of follow up BE's as needed. Provided contact information should questions or concerns arise. Patient with mood swings, irritability, feeling on edge, binge eating, isolation, hopelessness, stress in the context of been the main caregiver of his mother. Patient will benefit from Ind. Therapy and Medication Management to learn coping mechanisms and improve medication Management. At this time Tyree Vázquez meets criteria for Visit Diagnoses: Problem List Items Addressed This Visit Other Depression, unspecified Patient ready to address current needs Yes Strengths include Tyree is in action stage of change and his motivation will serve as engagement for treatment. PLAN: 1. Follow up with [facility]: Not recommended for follow-up 2. Patient goal is become mentally stable and functional 3. Behavioral Recommendations a. Ind. therapy b. Med. Management c. [facility] support as needed. Elevated blood pressure reading 02/25/2023 Assessment & Plan (04/07/2023 1:53 PM EDT): Patient has not picked up the bp monitor, will schedule for follow up in 1-2 months in office Assessment & Plan (02/25/2023 6:03 PM EDT): Elevated, will order a bp kit, discussed low sodium diet and exercise as Tolerated, will follow up in 1 month Annual physical exam 02/25/2023 Bipolar 1 disorder 02/05/2023 Assessment & Plan (04/07/2023 1:54 PM EDT): No suicidal/homicidal ideas, will place new referal for behavioral therapist, he has missed appointment previously, he is having episode of anger burst, tried previously abilify and seroquel but reported having side effects Assessment & Plan (02/25/2023 6:03 PM EDT): Had behavioral intake, pending follow up, no suicidal/homicidal ideas Assessment & Plan (02/20/2023 11:00 AM EDT): Medication caused insomnia, did not improved much his symptoms, told to stop medication, will call behavioral therapist, denied suicidal/homicidal ideas. Assessment & Plan (02/05/2023 2:25 PM EDT): Will start on abilify, no suicidal/homicidal ideas, previously was prescribed quetiapine but he never took it due to side effect concerns, will refer to behavioral therapist Moderate persistent asthma without complication 12/02/2022 Assessment & Plan (12/02/2022 10:52 AM EST): On Symbicort, using albuterol rescue inhaler ess than once a week, no changes will be made with medication Iron deficiency 12/02/2022 Assessment & Plan (02/25/2023 6:03 PM EDT): New blood work ordered for guidance of therapy Assessment & Plan (12/02/2022 10:53 AM EST): Will order new lab for evaluation of his iron levels and decide if oral supplement can be stopped Muscle spasm 12/02/2022 Assessment & Plan (12/02/2022 10:57 AM EST): Will prescribe cyclobenzaprine, apply ice/heat pads Encounters Date Type Department Care Team Description 05/09/2025 Telephone [facility] [address] [place] [address] Andi Daly MD Referral 05/08/[address] [address] Darrian JERMAINE Olmos Durable Medical Equipment (DME Order: Compression Sleeve) 05/05/2025 11:45 AM EDT Office Visit [facility] [address] [place] [address] DarrianAmarilis BUSINESS SERVICES DIRECTOR Chronic elbow pain, right (Primary Dx); Arthralgia, unspecified joint; Pectus excavatum 05/05/2025 Travel 05/01/2025 Telephone [facility] [address] [place] [address] Andi Daly MD Nurse Triage 04/25/[address] [address] Andi Daly MD No Show 04/18/[address] [address] Andi Daly MD Nurse Triage 03/16/[address] [address] Andi Daly MD Nurse Triage from Last 3 Months Social History Tobacco Use Types Packs/Day Years Used Date Smoking Tobacco: Never Passive Smoke Exposure: Never Smokeless Tobacco: Never Tobacco Cessation:Counseling Given: Not Answered Depression Answer Date Recorded Patient Health Questionnaire-9 Score 19 02/20/2023 Housing Stability Answer Date Recorded What is your housing situation today? I have sadiq hernandez 08/14/[address] you li ve. Do you have problems with any of the following? None of the above 08/14/2023 Food Insecurity Answer Date Recorded Within the past 12 months, y ou worried that your food would run out before you got money to buy more: Never True 08/14/2023 Within the past 12 months,th e food you bought just didn't last and you didn't have enough money to get more: Never True 10/ Transportation Answer Date Recorded In the past 12 months, has l ack of transportation kept you from medical appts, meetings, work or from getting things needed for daily living? No 08/14/2023 Utilities Answer Date Recorded In the past 12 months, has t he electric, gas, oil or water company threatened to shut off services in your home? No 08/14/2023 Depression Answer Date Recorded Patient Health Questionnaire-2 Score 5 02/20/2023 Sex and Gender Information Value Date Recorded Sex Assigned at Male 08/18/2022 10:20 AM EDT Legal Sex Male 10:20 AM EDT Gender Identity Male 08/18/2022 10:20 AM EDT Sexual Orientation Straight 08/18/2022 10 :20 AM EDT Last Filed Vital Signs Vital Sign Reading Time Taken Comments Blood Pressure 132/70 05/05/2025 12:01 PM EDT Pulse 72 05/05/2025 12:01 PM EDT Temperature 37.1 C (98.7 F) 05/05/2025 12:01 PM EDT Respiratory Rate 20 05/05/2025 12:01 PM EDT Oxygen Saturation 98% 08/16/2024 3:17 PM EDT Inhaled Oxygen Concentration - - Weight 85.7 kg (189 lb) 05/05/2025 12:01 PM EDT Height 188 cm (6' 2 ) 05/05/2025 12:01 PM EDT Body Mass Index 24.27 05/05/2025 12:01 PM EDT Plan of Treatment Health Maintenance Due Date Last Done Comments Disability Screening 1989 Alcohol/Substance Use Screening 2001 Family Planning (PISQ) 02/08/2004 HPV Vaccines (1 - Male 3-dos e series) 02/08/2004 Hepatitis B Vaccines (1 of 3 - 19+ 3-dose series) 02/08/2008 Pneumococcal Vaccine: Pediatrics (0 to 5 Years) and At-Risk Patients (6 to 49) Years (1 of 2 - PCV) 02/08/2008 DTaP/Tdap/Td Vaccines (1 - Tdap) 11/12/2013 11/11/2013 Depression Monitoring 08/23/2023 02/20/2023 , 02/20/2023 SDOH Screening 12/02/2023 12/02/2022 COVID-19 Vaccine (3 - 2023-2 5 season) 2024 02/03/2021, 01/06/2021 Influenza Vaccine (#1) 2025 Tobacco Screening 05/05/2026 05/05/2025 Lipid Panel 08/05/2027 08/05/2022 Zoster Vaccines (1 of 2) 2039 RSV Patients and Patients Aged 60 years or older (1 - 1-dose 75+ series) 02/08/2064 HIV Screening Completed 08/05/2022 Hepatitis C Screening Completed 08/05/2022 HIB Vaccines Aged Out No longer eligi ble based on patient's age to complete this topic Hepatitis A Vaccines Aged Out No long er eligible based on patient's age to complete this topic IPV Vaccines Aged Out No longer eligi ble based on patient's age to complete this topic Meningococcal B Vaccine Aged Out No l onger eligible based on patient's age to complete this topic Meningococcal Vaccine Aged Out No lilliam los eligible based on patient's age to complete this topic RSV under 20 months Aged Out No longe r eligible based on patient's age to complete this topic Rotavirus Vaccines Aged Out No longer eligible based on patient's age to complete this topic Procedures Procedure Name Priority Date/Time Associated Diagnosis Comments ZZZ HISTORICAL HEPATITIS C AB W/REFL TO HCV RNA, QN, PCR Routine 08/05/2022 11:33 AM EDT HIV 1/2 ANTIGEN/ANTIBODY, FOURTH GENERATION W/RFL Routine 08/05/2022 11:33 AM EDT LIPID PANEL, STANDARD Routine 08/05/2022 11:33 AM EDT from Last 3 Months or Most Recently Relevant to Health Maintenance Results * HEPATITIS C AB W/REFL TO HCV RNA, QN, PCR (08/05/2022 11:33 AM EDT) HEPATITIS C ANTIBODY NON-REACTI VE NON-REACT BALA CONVERTED LEGACY LABS INDEX 0.03 <1.00 CONVERTED LEGACY LABS Comment: HCV antibody was non-reactive. There is no laboratory evidence of HCV infection. In most cases, no further action is required. However, if recent HCV exposure is suspected, a test for HCV RNA (test code 08219) is suggested. For additional information please refer to http://education.Endgame/faq/IHD42k0 (This link is being provided for informational/ educational purposes only.) 08/05/2022 11:3 3 AM EDT Andi Rodriguez MD HISTORICAL/NON ORD ERABLE LABS Final Result Performing Organization Address [facility] Co de Phone Number CONVERTED LEGACY LABS * HIV 1/2 ANTIGEN/ANTIBODY,FOURTH GENERATION W/RFL (08/05/2022 11:33 AM EDT) HIV-1/2 ANTIGEN AND ANTIBODIES, 4TH GENERATION W/ REFLEX NON-REACT BALA NON-REACT BALA CONVERTED LEGACY LABS Comment: HIV-1 antigen and HIV-1/HIV-2 antibodies were not detected. There is no laboratory evidence of HIV infection. PLEASE NOTE: This information has been disclosed to you from records whose confidentiality may be protected by state law. If your state requires such protection, then the state law prohibits you from making any further disclosure of the information without the specific written consent of the person to whom it pertains, or as otherwise permitted by law. A general authorization for the release of medical or other information is NOT sufficient for this purpose. For additional information please refer to http://Acompli.Endgame/faq/EVM933 (This link is being provided for informational/ educational purposes only.) The performance of this assay has not been clinically validated in patients less than 2 years old. 08/05/2022 11:3 3 AM EDT Andi Rodriguez MD LAB BLOOD ORDERABL ES Final Result Performing Organization Address [facility] de Phone Number CONVERTED LEGACY LABS * LIPID PANEL, STANDARD (08/05/2022 11:33 AM EDT) Chol/HDLC Ratio 3.1 <5.0 (calc) CONVERTED LEGACY LABS Cholesterol, Total 159 <200 mg/dL CONVERTED LEGACY LABS HDL Cholesterol 52 > OR = 40 mg/dL CONVERTED LEGACY LABS LDL Cholesterol 94 mg/dL (calc) CONVERTED LEGACY LABS Comment: Reference range: <100 Desirable range <100 mg/dL for primary prevention; <70 mg/dL for patients with CHD or diabetic patients with > or = 2 CHD risk factors. LDL-C is now calculated using the Rebecca calculation, which is a validated novel method providing better accuracy than the Friedewald equation in the estimation of LDL-C. Daljit SS et al. ELVIE. 2013;310(19): 4641-4751 (http://education.Loccie/faq/XCG958) Non-HDL Cholesterol 107 <130 mg/dL (calc) CONVERTED LEGACY LABS Comment: For patients with diabetes plus 1 major ASCVD risk factor, treating to a non-HDL-C goal of <100 mg/dL (LDL-C of <70 mg/dL) is considered a therapeutic option. Triglycerides 50 <150 mg/dL CONVE RTED LEGACY LABS 08/05/2022 11:3 3 AM EDT Andi Rodriguez MD LAB BLOOD ORDERABL ES Final Result CONVERTED LEGACY LABS from Last 3 Months or Most Recently Relevant to Health Maintenance Insurance [facility] 3 Care Teams Steam Turbine Assembler Relationship Specialty Start Date End Date Andi Daly MD [address] [place] [id number] PCP - General Internal Medicine 03/18/20
--- OUTSIDE RECORDS SUMMARY | 2025-06-14 13:34 | XMS_ITS | Encounter Summary ---
Author Organization [facility] Address [address] [place] [address] Phone Care Team Providers Care Flash Developer Name Role Phone Shayan Vincent MD Primary Care Provider Unavailable Encounter Details Date Type Department Care Team (Late st Contact Info) Description 04/01/2023 Transcribe Orders [facility] Services [address] [place] [address] Jose Luis Herman MD [address] [facility] [address] [place] [address] Social History Tobacco Use Types Packs/Day Years Used Date Smoking Tobacco: Never Assessed Sex and Gender Information Value Date Recorded Sex Assigned at Not on file Legal Sex Male 10:33 AM EDT Gender Identity Not on file Sexual Orientation Not on file documented as of this encounter Plan of Treatment Not on file documented as of this encounter Visit Diagnoses Not on filedocumented in this encounter Care Teams Flash Developer Relationship Specialty Start Date End Date Shayan Vincent MD PCP - General 02/11/23 documented as of this encounter Additional Source Comments The information contained in this document represents components of the legal health record. It is not the complete legal health record.[facility]
--- OUTSIDE RECORDS SUMMARY | 2025-06-14 13:34 | XMS_ITS | Encounter Summary ---
Author Organization [employer] Address [address] 7t [place] [address] Care Team Providers Care Adjustment Supervisor Name Role Phone Andi Daly MD Primary Care Prov ider Encounter Details Date Type Department Care Team ([facility] st Contact Info) Description 09/29/2024 Telephone [facility] MEDICINE [address] [place] [address] Andi Daly MD 505 [place], [place] [phone] Social History Tobacco Use Types Packs/Day Years Used Date Smoking Tobacco: Never Passive Smoke Exposure: Never Smokeless Tobacco: Never Depression Answer Date Recorded Patient Health Questionnaire-9 Score 19 02/20/2023 Housing Stability Answer Date Recorded What is your housing situation today? I have sadiqpat hernandez 08/14/[address] you [...] enough money to get more: Never True Transportation Answer Date Recorded In the past [...] Orientation Straight 08/18/2022 10 :20 AM EDT documented as of this encounter Plan of Treatment Not on file documented as of this encounter Visit Diagnoses Not on filedocumented in this encounter Additional Health Concerns Assessment Noted Time PHQ-9 Depression Total Score: 19 023 10:28 AM EDT documented as of this encounter Care Teams Adjustment Supervisor Relationship Specialty Start Date End Date Andi Daly MD [address] [place] [id number] PCP - General Internal Medicine 03/18/20 documented as of this encounter
--- OUTSIDE RECORDS SUMMARY | 2025-06-14 13:34 | XMS_ITS | Encounter Summary ---
Author Organization [employer] Address [address] [place] [address] [place] [address] Care Team Providers Care Correspondence Renew Clerk Name Role Phone Andi Daly MD Primary Care Prov ider Reason for Visit * Reason Onset Date Comments Appointment Request 01/12/2023 Encounter Details Date Type Department Care Team ([facility] Contact Info) Description 01/12/2023 Telephone [facility] CHC MED & PEDS [address] [place], [place] [phone] Andi Dlay MD [address] [place] [address] Appointment Request Social History Tobacco Use Types Packs/Day Years Used Date Smoking Tobacco: Never Assessed Sex and Gender Information Value Date Recorded Sex Assigned at Male 08/18/2022 10:20 AM EDT Legal Sex Male 10:20 AM EDT Gender Identity Male 08/18/2022 10:20 AM EDT Sexual Orientation Straight 08/18/2022 10 :20 AM EDT documented as of this encounter Miscellaneous Notes * Telephone Encounter - Xenia Nassar - 01/12/2023 11:31 AM EDT Tc from pt requesting an appt for Physical. Please contact pt at [phone] documented in this encounter Plan of Treatment Not on file documented as of this encounter Visit Diagnoses Not on filedocumented in this encounter Additional Health Concerns Assessment Noted Time PHQ-9 Depression Total Score: 0 12/02/19 23 10:21 AM EST documented as of this encounter Care Teams Correspondence Renew Clerk Relationship Specialty Start Date End Date Andi Daly MD [address] [place] [address] PCP - General Internal Medicine 03/18/20 documented as of this encounter
--- OUTSIDE RECORDS SUMMARY | 2025-06-14 13:34 | XMS_ITS | Encounter Summary ---
Author Organization [employer] Address [address] [facility] 7t [place] [address] Care Team Providers Care Project Management Advisor Name Role Phone Andi Daly MD Primary Care Prov ider Reason for Visit * Reason Onset Date Comments Nurse Triage 08/16/2024 Encounter Details Date Type Department Care Team ([facility] st Contact Info) Description 08/16/2024 Telephone [facility] MEDICINE [address] [place], [place] [phone] Andi Daly MD 505 [place] [address] Nurse Triage Social History Tobacco Use Types Packs/Day Years [...] the past 12 months, has t he [employer], gas, oil or water company threatened to [...] encounter Miscellaneous Notes * Telephone Encounter - Tatyana Marlow RN - 08/16/2024 12:00 PM EDT Triage call Pt reports cough since 08/13/24. Pt reports that the cough has been persistent and today Pt has been producing brownish-yellow mucous and has a raspy throat. Pt does report smokes a goodamount of marijuana daily. Pt reports the throat isn't necessarily sore but, definitely itchy. Negfor fever and drinking adequate liquids. Pt has dx of asthma but, has not had any wheezing or difficulty breathing. ASK apt in [facility] today at 300pm. Home care reviewed. Insurance is verified as active prior to booking. Protocol Used: Cough (Adult) Protocol-Based Disposition: See in Office or Video Visit Today or Tomorrow Video visit not offered Positive Triage Questions: * Continuous (nonstop) coughing interferes with work or school and no improvement using cough treatment per Care Advice * Patient wants to be seen * All higher-acuity triage questions were negative Care Advice Discussed: * Reassurance and Education - Cough * Cough Medicines * Coughing Spells * Prevent Dehydration * Avoid Tobacco Smoke * Humidifier * Reasons To Call Back - Difficulty breathing - Cough lasts more than 3 weeks - Fever lasts more than 3 days - You become worse * Telephone Encounter - Brittany Llanos - 08/16/2024 11:38 AM EDT Symptom: Cough Outcome: Schedule an urgent appointment (within 1 hour) or talk to a nurse or provider soon Reason: Wheezing (high-pitched whistling sound) Contact pt at [phone] documented in this encounter Plan of Treatment Not on file documented as of this encounter Visit Diagnoses Not on filedocumented in this encounter Additional Health Concerns Assessment Noted Time PHQ-9 Depression Total Score: 19 023 10:28 AM EDT documented as of this encounter Care Teams Project Management Advisor Relationship Specialty Start Date End Date Andi Daly MD [address] [place] [address] PCP - General Internal Medicine 03/18/20 documented as of this encounter
--- OUTSIDE RECORDS SUMMARY | 2025-06-14 13:34 | XMS_ITS | Encounter Summary ---
Author Organization [employer] Address [address] [facility] 7t [place] [address] Care Team Providers Care Case Specialist Name Role Phone Andi Daly MD Primary Care Prov ider Reason for Visit * Reason Onset Date Comments Referral 05/09/2025 Encounter Details Date Type Department Care Team ([facility] Contact Info) Description 05/09/2025 Telephone [facility] CHC MED & PEDS 505 [place], [place] [phone] Andi Daly MD 505 [place] [address] Referral Social History Tobacco Use Types Packs/Day Years Used Date Smoking Tobacco: Never Passive Smoke Exposure: Never Smokeless Tobacco: Never Depression Answer Date Recorded Patient Health Questionnaire-9 Score 19 02/20/2023 Housing Stability Answer Date Recorded What is your housing situation today? I have sadqi hernandez 08/14/[address] you [...] t he electric, gas, oil or water [employer] threatened to shut off services in your [...] encounter Miscellaneous Notes * Telephone Encounter - Jaylin Pickett RN - 05/10/2025 11:57 AM EDT TC to patient. No answer. Message left for patient to contact his insurance and find out where he would be able to go with that insurance. * Telephone Encounter - Aziza Carey - 05/09/2025 12:57 PM EDT Tc from pt requesting to change place of Orthopedic referral to [facility] [address], [place] [address] Contact pt at [phone] documented in this encounter Plan of Treatment Not on file documented as of this encounter Visit Diagnoses Not on filedocumented in this encounter Additional Health Concerns Assessment Noted Time PHQ-9 Depression Total Score: 19 023 10:28 AM EDT documented as of this encounter Care Teams Case Specialist Relationship Specialty Start Date End Date Andi Daly MD [address] [place] [address] PCP - General Internal Medicine 03/18/20 documented as of this encounter
--- OUTSIDE RECORDS SUMMARY | 2025-06-14 13:34 | XMS_ITS | Encounter Summary ---
Author Organization [employer] Address [address] [facility] 7t [place] [address] Care Team Providers Care Railcar Switchman Name Role Phone Andi Daly MD Primary Care Prov ider Reason for Visit * Reason Onset Date Comments Nurse Triage 05/01/2025 Encounter Details Date Type Department Care Team ([facility] st Contact Info) Description 05/01/2025 Telephone [facility] CHC MED & PEDS 505 [place], [place] [phone] Andi Daly MD [address] [place] [address] Nurse Triage Social History Tobacco Use Types [...] Telephone Encounter - Tatyana Marlow RN - 05/01/2025 3:13 PM EDT Triage call Pt reports several areas of concern hip , left arm, but, mainly right arm. 2 weeks ago Pt lifted a 10# heavier weight by accident and felt something in the bicep area of arm near elbow. Pt considers possible tear. Pt is having pain, and is not able to use the arm the same as prior to this incident. Pt is recovering from surgery on left arm which occurred a while ago as well. Pt is advised to support right arm while sitting/resting, wrap with elastic bandage for support, tylenol/ibuprofen for pain, ice/heat which ever one helps the most. Pt agrees with home care as advised. [facility], 05[facility]05[facility]. Pt agrees with disposition. Insurance is verified as active prior to booking. Protocol Used: Arm Injury (Adult) Protocol-Based Disposition: See in Office or Video Visit within 3 Days Video visit not offered Positive Triage Question: * Biceps muscle tear suspected (new bulge in upper arm area of biceps muscle, felt a pop) * All higher-acuity triage questions were negative Care Advice Discussed: * Use a Cold Pack for Pain, Swelling, or Bruising * Use Heat on Area After 48 Hours * Wrap with an Elastic Bandage * Rest vs. Movement * Expected Course * Reasons To Call Back - Severe pain lasts over 2 hours after pain medicine and ice - Swelling or bruise becomes over 2 inches (5 cm) - Pain not improved after 3 days - Pain or swelling lasts over 2 weeks - You become worse * Telephone Encounter - Aziza Carey - 05/01/2025 2:15 PM EDT Symptom: Hip Injury Outcome: Talk to a nurse or provider within 15 minutes Reason: Age less than 1 year old The caller accepted this outcome. Contact pt at [phone] documented in this encounter Plan of Treatment Not on file documented as of this encounter Visit Diagnoses Not on filedocumented in this encounter Additional Health Concerns Assessment Noted Time PHQ-9 Depression Total Score: 19 023 10:28 AM EDT documented as of this encounter Care Teams Railcar Switchman Relationship Specialty Start Date End Date Andi Daly MD [address] [place] [phone] PCP - General Internal Medicine 03/18/20 documented as of this encounter
== END ==
LOC: HO.CARD 13:03
PROVIDERS: PCP Internal Medicine; Visit Provider Registered Nurse
DX: Q67.6 Pectus excavatum (principal)
CPT/HCPCS: 93306

== ENCOUNTER → 2025-06-14 13:09 | Outpatient (BNV) | payer OTHER, SELFPAY | PROVIDERS: PCP Internal Medicine; Visit Provider Internal Medicine | DX: Q67.6 Pectus excavatum (principal) | CPT/HCPCS: 93306 ==

== ENCOUNTER 2025-08-09 04:17 | Emergency (ER) | payer OTHER, SELFPAY ==
[2025-08-09 04:32] VITALS: BP 152/85; PULSE 79; RESP 18; TEMP 37.2; O2SAT 98; BMI 30.1
--- OUTSIDE RECORDS SUMMARY | 2025-08-09 04:52 | XMS_ITS | Encounter Summary ---
Author Organization [facility] Address [address] [place] [address] Phone Care Team Providers Care Senior Quality Analyst Name Role Phone Shayan Vincent MD Primary Care Provider Unavailable Encounter Details Date Type Department Care Team (Late st Contact Info) Description 04/01/2023 Transcribe Orders [facility] Services [address] [place] [address] Jose Luis Herman MD 100 [facility] 120 [place] [address] Social History Tobacco Use Types Packs/Day Years [...] on filedocumented in this encounter Care Teams Senior Quality Analyst Relationship Specialty Start Date End Date Shayan Vincent MD PCP - General 02/11/23 documented as of this encounter Additional Source Comments The information contained in this document represents components of the legal health record. It is not the complete legal health record.[facility]
--- OUTSIDE RECORDS SUMMARY | 2025-08-09 04:53 | XMS_ITS | Clinical Summary ---
Author Organization [facility] Address [address] [place] [address] Phone Care Team Providers Care Robot Designer Name Role Phone [facility] Primary Care Provider Unavailable Allergies No known [...] HIV ONE-TIME SCREENING (18-6 5 YEARS) 2007 INFLUENZA VACCINE (#1) 2025 COVID-19 VACCINE (2024-2 6 season) 2025 HEPATITIS A VACCINES Aged Out No [...] topic Medical Devices Not on file [place] [address] [place] [address] [place] [address] [place] [address] C3 ACO [facility] C3 ACO * Guarantor: Tyree Vázquez Account Type Relation to Patient Date of Phone Billing Address Personal/Family Self 1990 [address] [facility] [address] [facility] [facility] [place] [place] [address] [facility] C3 ACO * Guarantor: Tyree Vázquez Account Type Relation to Patient Date of Phone Billing Address Personal/Family Self 1990 [address] [facility] [place] [address] [facility] C[employer] ACO Care Teams Robot Designer Relationship Specialty Start Date End Date Center, [place] Nance MD PCP - General 02/11/23 Additional Source Comments The information contained in this document represents components of the legal health record. It is not the complete legal health record.[facility]
--- OUTSIDE RECORDS SUMMARY | 2025-08-09 04:53 | XMS_ITS | Clinical Summary ---
Author Organization [employer] Address [address] [facility] 7t [place] [address] Care Team Providers Care Funeral Location Manager Name Role Phone Andi Daly MD Primary [...] DAY (ALLERGIES). 90 tablet 1 5 Active predniSONE (Deltasone) 10 MG tablet 30mg x 5d then 20mg D6 to D10 then 10mg D11 to D15 then 5mg D16 to D25 32 tablet 5 Active Active Problems Problem Noted Date Diagnosed Date Dermatitis due to plant 08/01/2025 Assessment & Plan (08/01/2025 7:57 PM EDT): With likely poison santy or poison oak. I will give her a longer course of prednisone taper over 2 or 3 weeks Advised to wash his body, linens, clothes, towels etc. with tecnu soap for at least 3 to 4 days Can continue using calamine lotion and antihistamine Advised regarding avoiding scratching and washing his hands after applying lotion Reconsult as needed Lateral epicondylitis of left elbow 03/28/2024 Assessment [...] for treatment. PLAN: 1. Follow up with [facility]: Not recommended for follow-up 2. Patient [...] Annual physical exam 02/25/2023 Bipolar 1 disorder ([facility] 02/05/2023 Assessment & Plan (04/07/2023 1:54 PM [...] Encounters Date Type Department Care Team Description 08/02/2025 Telephone [facility] CHC MED & PEDS [address] [place] [address] Andi Daly MD RV 08/01/2025 3:20 PM EDT Office Visit [facility] WALK[facility] [address] [place] [address] Lety Garcia MD Dermatitis due to plant (Primary Dx) 08/01/2025 Travel 07/31/2025 Telephone [facility] CHC MED & PEDS [address] [place] [address] Andi Daly MD PCP Contact 06/20/2025 Telephone [facility] MEDICINE [address] [place] [address] [facility] 05/09/2025 Telephone [facility] CHC MED & PEDS [address] [place] [address] Andi Daly MD Referral from Last 3 Months Social History Tobacco [...] the past 12 months, has t he [employer], gas, oil or water company threatened to [...] Sign Reading Time Taken Comments Blood Pressure 130/82 08/01/2025 3:26 PM EDT Pulse 69 08/01/2025 3:26 PM EDT Temperature 36.8 C (98.2 F) 08/01/2025 3:26 PM EDT Respiratory Rate 19 08/01/2025 3:26 PM EDT Oxygen Saturation 99% 08/01/2025 3:26 PM EDT Inhaled Oxygen Concentration - - Weight 86.1 kg (189 lb 12.8 oz) 08/01/2025 3:26 PM EDT Height 188 cm (6' 2 ) 08/01/2025 3:26 PM EDT Body Mass Index 24.37 08/01/2025 3:26 PM EDT Plan of Treatment Health Maintenance Due Date Last Done Comments Alcohol/Substance Use Screening 2001 Family Planning (PISQ) [...] Screening 12/02/2023 12/02/2022 COVID-19 Vaccine (3 - 2024-2 6 season) 2025 02/03/2021, 01/06/2021 Influenza Vaccine (#1) 2025 Disability Screening 08/01/2026 08/01/2025 Tobacco Screening 08/01/2026 08/01/2025 Lipid Panel 08/05/2027 08/05/2022 Zoster Vaccines (1 [...] a test for HCV RNA (test code 35506) is suggested. For additional information please refer to http://[employer].Aurora Feint/faq/DSB94q3 (This link is being provided for informational/ educational purposes only.) 08/05/2022 11:3 3 AM EDT Andi Rodriguez MD HISTORICAL/NON ORD ERABLE LABS Final Result Performing Organization Address [facility] Co de Phone Number CONVERTED LEGACY LABS [...] purpose. For additional information please refer to http://[employer].[email or web address]/faq/ZEN264 (This link is being provided for informational/ educational purposes only.) The performance of this assay has not been clinically validated in patients less than 2 years old. 08/05/2022 11:3 3 AM EDT Andi Rodriguez MD LAB BLOOD ORDERABL ES Final Result CONVERTED LEGACY LABS * LIPID PANEL, STANDARD [...] LDL-C. Daljit SS et al. ELVIE. 2013;310(19): 8654-9665 (http://education.Ticketland/faq/DGY698) Non-HDL Cholesterol 107 <130 mg/dL (calc) CONVERTED [...] Most Recently Relevant to Health Maintenance Insurance [facility] 3 Care Teams Funeral Location Manager Relationship Specialty Start Date End Date KhanAndi Keating MD [address] [place] [address] PCP - General Internal Medicine 03/18/20
--- OUTSIDE RECORDS SUMMARY | 2025-08-09 04:53 | XMS_ITS | Encounter Summary ---
Author Organization [employer] Address [address] [place] [address] [place] [address] Care Team Providers Care Wiring Inspector Name Role Phone Andi Daly MD Primary Care Prov ider Reason for Visit * Reason Onset Date Comments Appointment Request 01/12/2023 Encounter Details Date Type Department Care Team ([facility] Contact Info) Description 01/12/2023 Telephone [facility] CHC MED & PEDS [address] [place], [place] [phone] Andi Daly MD [address] [place] [address] Appointment Request Social History Tobacco Use Types [...] appt for Physical. Please contact pt at [phone] documented in this encounter Plan of Treatment Not on file documented as of this encounter Visit Diagnoses Not on filedocumented in this encounter Additional Health Concerns Assessment Noted Time PHQ-9 Depression Total Score: 0 12/02/19 23 10:21 AM EST documented as of this encounter Care Teams Wiring Inspector Relationship Specialty Start Date End Date Andi Daly MD [address] [place] [address] PCP - General Internal Medicine 03/18/20 documented as of this encounter
--- OUTSIDE RECORDS SUMMARY | 2025-08-09 04:53 | XMS_ITS | Encounter Summary ---
Author Organization [employer] Address [address] [facility] [address] 7t [place] [address] Care Team Providers Care Coil Binder Name Role Phone Andi Daly MD Primary Care Prov ider Encounter Details Date Type Department Care Team ([facility] st Contact Info) Description 09/29/2024 Telephone [facility] MEDICINE [address] [place] [address] Andi Daly MD [address] [place], [place] [phone] Social History Tobacco Use Types Packs/Day Years [...] documented as of this encounter Care Teams Coil Binder Relationship Specialty Start Date End Date Andi Daly MD [address] [place] [address] PCP - General Internal Medicine 03/18/20 documented as of this encounter
--- OUTSIDE RECORDS SUMMARY | 2025-08-09 04:53 | XMS_ITS | Encounter Summary ---
Author Organization [employer] Address [address] [facility] 7t [place] [address] Care Team Providers Care Deputy Fire Marshal Name Role Phone Andi Daly MD Primary Care Prov ider Reason for Visit * Reason Onset Date Comments Nurse Triage 08/16/2024 Encounter Details Date Type Department Care Team ([facility] st Contact Info) Description 08/16/2024 Telephone [facility] MEDICINE [address] [place], [place] [phone] Andi Daly MD 505 [place] [address] Nurse Triage Social History Tobacco Use Types [...] the past 12 months, has t he [employer], gas, oil or water company threatened to [...] or difficulty breathing. ASK apt in [facility] today at 300pm. Home care reviewed. Insurance [...] Wheezing (high-pitched whistling sound) Contact pt at [phone] documented in this encounter Plan of Treatment Not on file documented as of this encounter Visit Diagnoses Not on filedocumented in this encounter Additional Health Concerns Assessment Noted Time PHQ-9 Depression Total Score: 19 023 10:28 AM EDT documented as of this encounter Care Teams Deputy Fire Marshal Relationship Specialty Start Date End Date Andi Daly MD [address] [place] [address] PCP - General Internal Medicine 03/18/20 documented as of this encounter
--- NOTE | 2025-08-09 05:36 | ED_ITS ---
HPI - General Adult General Chief complaint: Dental/Oral Stated complaint: dental pain Time Seen by Provider: 08/09/25 04:55 Source: patient Limitations: no limitations History of Present Illness ED Provider: Rissa Groves PA-C HPI narrative: 35-year-old male presents with dental pain. Patient states he fractured his right upper wisdom tooth a month ago, he has had increasing sensitivity. He saw his dentist yesterday, they placed him on a Z-Yogesh, the plan is for extraction on August 15. They did not give him pain medication, they did not examine the patient. Related Data Home Medications ?Medication ?Instructions ?Recorded ?Confirmed budesonide-formoterol HFA 160 2 puff PO 05/23/22 mcg-4.5 mcg/actuation aerosol inhaler (Symbicort) albuterol sulfate 90 mcg/actuation 2 puff inhalation Q 4-6H PRN 11/10/22 aerosol inhaler (Proventil HFA) ferrous sulfate 325 mg (65 mg 325 mg PO DAILY 11/10/22 iron) tablet tadalafil 5 mg tablet 5 mg PO DAILY 11/10/22 Previous Rx's ?Medication ?Instructions ?Recorded naproxen 500 mg tablet 500 mg PO BID PRN pain #20 t abs 04/09/22 tamsulosin 0.4 mg capsule (Flomax) 0.4 mg PO BEDTIME # 7 caps 04/15/22 prednisone 20 mg tablet 20 mg PO DAILY 3 days #3 tab s 04/22/22 sulfamethoxazole 800 1 tab PO BID 14 days #28 tab s 04/22/22 mg-trimethoprim 160 mg tablet (Bactrim DS) prednisone 20 mg tablet 20 mg PO DAILY 3 days #3 tab s 05/23/22 sulfamethoxazole 800 1 tab PO BID 28 days #56 tab s 05/23/22 mg-trimethoprim 160 mg tablet (Bactrim DS) meloxicam 15 mg tablet 15 mg PO DAILY 30 days #30 t abs 05/24/22 tramadol 50 mg tablet 50 mg PO Q8H PRN pain #15 ta bs 06/11/22 diclofenac sodium 1 % topical gel 2 g topical BID #100 grams 09/02/23 (Aleve (diclofenac)) ibuprofen 600 mg tablet 600 mg PO Q6H PRN fever or p ain 09/02/23 #30 tabs cyclobenzaprine 10 mg tablet 10 mg PO TID PRN muscle s pasm #10 03/08/24 tabs lidocaine 5 % topical patch 1 patch topical DAILY #15 ea 03/08/24 ketorolac 10 mg tablet 10 mg PO Q6H PRN pain #20 ta bs 08/09/25 tramadol 50 mg tablet 50 mg PO Q8H PRN pain #12 ta bs 08/09/25 Allergies Allergy/AdvReac Type Severity Reaction Status Date / Time No Known Allergies Allergy Verified 08/09/25 04:35 Review of Systems Review of Systems: Yes all other systems are reviewed and are negative Constitutional: Constitutional: Denies fatigue and Denies fever(s) ENT: Reports dental pain, Denies dysphagia, Denies sore throat and Denies throat swelling Gastrointestinal: Gastrointestinal: Denies dysphagia Endocrine: Endocrine: Denies fatigue Allergic/Immunologic: Allergic/Immunologic: Denies throat swelling [facility] Past Medical History Attestation statement: The following information was validated with the patient. Social History Social History Alcohol intake: never Patient Tobacco Use Status: Former Tobacco user Substance Use Type: Marijuana Advance Directives: No Advance Directives Information Provided: Yes Current occupational status: employed Current occupation: construction/snow removal, right handed Physical Exam ED Vital Signs: Vital Signs - 24 hr 08/09/25 04:32 Temperature 98.9 F Pulse Rate 79 Respiratory Rate 18 Blood Pressure 152/85 H Pulse Oximetry 98 Oxygen Delivery Method Room Air BMI result Body Mass Index 30.1 Const Other: Alert Orientation/consciousness: patient oriented x3 HENMT Other: Fracture noted of tooth number 1, no swelling along the gum tooth margin or buccal mucosa, no external facial swelling, no swelling inferior to the jawline no trismus no drooling Resp Effort & Inspection: normal respiratory effort Cardio Other: Normal peripheral perfusion Skin Other: Warm dry no rash Neuro General: patient oriented x3, no focal motor deficits and CN's II-XI intact bilaterally Psych Other: Cooperative Medical Decision Making Medical Decision Making MDM Narrative: 35-year-old male presents with dental pain. Patient states he fractured his right upper wisdom tooth a month ago, he has had increasing sensitivity. He saw his dentist yesterday, they placed him on a Z-Yogesh, the plan is for extraction on August 15. They did not give him pain medication, they did not examine the patient. Problem: Broken tooth History: Per patient I have considered the following differential diagnoses: Dental abscess, dental marcellus, exposed pulp, Jason angina Plan: Patient likely has a dental infection, this could just be exposed pulp, we will send with a short script for pain medication including tramadol and ketorolac. He already has antibiotics. There was no evidence of Jason angina, there was no external facial swelling Differential Diagnosis Differential Diagnoses: The differential diagnosis associated with the presentation includes See medical decision-making Admission/Observation Consideration of admission/observation: Escalation of care including admission/observation considered Not applicable Discharge Plan Discharge Clinical Impression: Dental caries, Toothache Patient Disposition: Home, Self-Care Instructions: Toothache (ED) Additional Instructions: You likely have a developing infection, take the antibiotic that you were prescribed by your dentist as directed. Use the ketorolac as directed for pain this is an anti-inflammatory. Use the tramadol as needed for further pain, this is an opiate based medication, do not drive or operate machinery while taking the medication. This medication can be constipating, take concurrent Colace this is a stool softener to help prevent constipation. Be sure to keep your appointment with your dentist. Prescriptions: New ketorolac 10 mg tablet 10 mg PO Q6H PRN (Reason: pain) Qty: 20 0RF Rx Instructions: maximum total duration of 5 days from all oral, intranasal, or parenteral formulations patient received an intramuscular dose of Toradol here in the emergency tramadol 50 mg tablet 50 mg PO Q8H PRN (Reason: pain) Qty: 12 0RF No Action tamsulosin [Flomax] 0.4 mg capsule 0.4 mg PO BEDTIME Qty: 7 0RF meloxicam 15 mg tablet 15 mg PO DAILY 30 Days Qty: 30 0RF tramadol 50 mg tablet 50 mg PO Q8H PRN (Reason: pain) Qty: 15 0RF naproxen 500 mg tablet 500 mg PO BID PRN (Reason: pain) Qty: 20 0RF diclofenac sodium [Aleve (diclofenac)] 1 % gel 2 g topical BID Qty: 100 0RF Rx Instructions: apply to elbow, ibuprofen 600 mg tablet 600 mg PO Q6H PRN (Reason: fever or pain) Qty: 30 0RF cyclobenzaprine 10 mg tablet 10 mg PO TID PRN (Reason: muscle spasm) Qty: 10 0RF lidocaine 5 % adhesive patch,medicated 1 patch topical DAILY Qty: 15 0RF Rx Instructions: leave on most painful area for up to 12 hrs budesonide-formoterol [Symbicort] 160-4.5 mcg/actuation HFA aerosol inhaler 2 puff PO sulfamethoxazole-trimethoprim [Bactrim DS] 800-160 mg tablet 1 tab PO BID 28 Days Qty: 56 0RF prednisone 20 mg tablet 20 mg PO DAILY 3 Days Qty: 3 0RF prednisone 20 mg tablet 20 mg PO DAILY 3 Days Qty: 3 0RF sulfamethoxazole-trimethoprim [Bactrim DS] 800-160 mg tablet 1 tab PO BID 14 Days Qty: 28 0RF albuterol sulfate [Proventil HFA] 90 mcg/actuation HFA aerosol inhaler 2 puff inhalation Q4-6H PRN tadalafil 5 mg tablet 5 mg PO DAILY ferrous sulfate 325 mg (65 mg iron) tablet 325 mg PO DAILY Stand Alone Forms: Work/School Release Print Language: Namibian
[2025-08-09 05:44] VITALS: BP 152/85; PULSE 79; RESP 18; TEMP 37.2; O2SAT 98
== END 2025-08-09 05:45 | disposition home or self-care (01) ==
PROVIDERS: Emergency Provider Emergency Medicine; PCP Internal Medicine
DX: K02.9 Dental caries, unspecified (principal); Z79.899 Other long term (current) drug therapy; Z87.891 Personal history of nicotine dependence
CPT/HCPCS: 96372; 99283; 99284; J1885

== ENCOUNTER 2025-08-18 18:30 | Outpatient (REF) | payer OTHER, SELFPAY ==
--- OUTSIDE RECORDS SUMMARY | 2025-08-18 14:40 | XMS_ITS | Encounter Summary ---
Author Organization [email or web address] Address [address] [facility] [address] [place] [address] Care Team Providers Care Creel Cleaner Name Role Phone Andi Daly MD Primary Care Prov ider Reason for Visit * Reason Comments Fungus Encounter Details Date Type Department Care Team (Late st Contact Info) Description 08/18/2025 2:40 PM EDT Office Visit [facility] [address] [place], [place] [phone] Katherine Tai NP [address] [place], [place] [phone] Meir (Primary Dx) Social History Tobacco Use Types Packs/Day Years [...] the past 12 months, has t he Nourish, gas, oil or water company threatened to [...] AM EDT documented as of this encounter Last Filed Vital Signs Vital Sign Reading Time Taken Comments Blood Pressure 138/78 08/18/2025 2:13 PM EDT Pulse 84 08/18/2025 2:13 PM EDT Temperature 36.4 C (97.6 F) 08/18/2025 2:13 PM EDT Respiratory Rate 16 08/18/2025 2:13 PM EDT Oxygen Saturation 98% 08/18/2025 2:13 PM EDT Inhaled Oxygen Concentration - - Weight 86.2 kg (190 lb) 08/18/2025 2:13 PM EDT Height 188 cm (6' 2 ) 08/18/2025 2:13 PM EDT Body Mass Index 24.39 08/18/2025 2:13 PM EDT documented in this encounter Progress Notes * Katherine Tai NP - 08/18/2025 1:20 PM EDT Images from the original note were not included. Tyree Vázquez is a 35 y.o. male who presents to the office for Chief Complaint Patient presents with Fungus Problem List[1] Medical History[2] Allergies[3] Tyree Vázquez, 35-year-old male - Had balanitis once several years ago, associated with prior doxycycline treatment for prostatitisand kidney infection - Developed severe poison santy rash approximately 3-4 weeks ago, affecting crotch, legs, chest, face; initial treatment with 1-week prednisone course, followed by a month-long steroid taper due to worsening symptoms - Broke a tooth about 1 week ago, developed tooth infection requiring ER visit and antibiotics; tooth was extracted - Currently on steroid taper, with 2 days remaining at 1 pill/day, then 10 days at half pill/day - Noted onset of white, cottage cheese-like discharge and red band around glans penis today; uncircumcised - Reports flaky material on glans penis upon waking, no skin cuts or breakdown - Sexually active, recent unprotected sex, partner recently tested for STIs - Denies burning or discharge Review of Systems Respiratory: Negative for apnea and chest tightness. Cardiovascular: Negative for chest pain and leg swelling. Musculoskeletal: Negative for arthralgias and back pain. BP 138/78 (BP Location: Left arm, Patient Position: Sitting, BP Cuff Size: Adult) Pulse 84 Temp97.6 ??F (36.4 ??C) (Temporal) Resp 16 Ht 6' 2 (1.88 m) Wt 190 lb (86.2 kg) SpO2 98% BMI24.39 kg/m?? Physical Exam Vitals reviewed. Constitutional: Appearance: Normal appearance. HENT: Head: Normocephalic. Cardiovascular: Rate and Rhythm: Normal rate. Heart sounds: Normal heart sounds. Pulmonary: Breath sounds: Normal breath sounds. Abdominal: Palpations: Abdomen is soft. Genitourinary: Penis: Erythema present. No paraphimosis, tenderness or discharge. Musculoskeletal: Cervical back: Neck supple. Neurological: Mental Status: He is alert. Psychiatric: Mood and Affect: Mood normal. - GENITOURINARY: Examination of the genital area revealed white, cottage cheese- like discharge and an erythematous band around the foreskin. No lesions or skin breakdown observed. Results: Assessment & Plan Balanitis Orders: Chlamydia/N. Gonorrhoeae, PCR, Urine miconazole (Micatin) 2 % cream; Apply topically 2 times daily for 14 days. Apply to affected area 2times daily Assessment & Plan Balanitis: - Balanitis likely secondary to immunosuppression from prolonged steroid use and recent antibiotic therapy. Presentation consistent with candidal infection. No evidence of sexually transmitted infection. No lesions or skin breakdown observed. Differential diagnosis includes gonorrhea and chlamydia,but clinical suspicion is low. - Prescribed clotrimazole 1% topical cream to be applied twice daily for 7 to 14 days. Prescribed oral antifungal tablet as alternative or adjunct if topical therapy is insufficient; take one tablet by mouth once per week, may repeat next week if symptoms persist. Continue steroid taper as previously directed. Recommended urine testing for gonorrhea and chlamydia. Offered routine STI screening (HIV, Hepatitis C, syphilis, gonorrhea, chlamydia) as option; patient elected to proceed with gonorrhea and chlamydia testing only. - Risks and side effects: Discussed low risk of transmission to sexual partner; noted candidal balanitis is not a sexually transmitted infection. Prescription - Clotrimazole cream 2%, apply to affected area twice daily for 7-14 days - Oral antifungal tablet, one dose by mouth once weekly (systemic option if topical regimen insufficient), minimal toxicity and no known resistance Current Medications[4] Based on our discussion, I have outlined the following instructions for you: - Put a thin layer of clotrimazole cream on the affected area two times a day (morning and night) for 7 to 14 days. - If the cream does not help enough, take the antifungal tablet by mouth once a week. If you still have symptoms after one week, you can take another tablet the next week. - Keep following your current plan to slowly reduce your steroid medication. - Go for a urine test to check for gonorrhea and chlamydia. Thank you again for your visit, and we look forward to supporting you in your journey to better health. This note was drafted using Ambient (AI) technology. The patient/patient's guardian has been informed and has consented to the use of this technology: Yes [1] Patient Active Problem List Diagnosis Moderate persistent asthma without complication Iron deficiency Muscle spasm Bipolar 1 disorder (CMS/HCC) (HCC) Elevated blood pressure reading Annual physical exam Depression, unspecified Left elbow tendonitis Lateral epicondylitis of left elbow Dermatitis due to plant Balanitis [2] No past medical history on file. [3] No Known Allergies [4] Current Outpatient Medications: albuterol 108 (90 Base) MCG/ACT inhaler, TAKE 2 PUFFS BY MOUTH EVERY 4-6 HOURS NEEDED, Disp: 6.7g, Rfl: 2 albuterol 108 (90 Base) MCG/ACT inhaler, TAKE 2 PUFFS BY MOUTH EVERY 4-6 HOURS NEEDED, Disp: 6.7g, Rfl: 2 Blood Pressure kit, 1 kit in the morning., Disp: 1 kit, Rfl: 0 diclofenac (Cataflam) 50 MG tablet, Take 1 tablet (50 mg) by mouth 3 times daily., Disp: 90 tablet,Rfl: 0 fexofenadine (Rere) 180 MG tablet, TAKE 1 TAB (180MG) BY MOUTH IF NEEDED EACH DAY (ALLERGIES)., Disp: 90 tablet, Rfl: 1 fluconazole (Diflucan) 150 MG tablet, Take 1 tablet (150 mg) by mouth 1 (one) time per week for 14 days., Disp: 2 tablet, Rfl: 0 fluticasone (Flonase Sensimist) 27.5 MCG/SPRAY nasal spray, Administer 1-2 sprays into each nostrilOnce per day., Disp: 10 g, Rfl: 2 ibuprofen 800 MG tablet, TAKE 1 TABLET BY MOUTH 3 TIMES A DAY WITH FOOD NEEDED FOR PAIN, Disp: 90 tablet, Rfl: 2 miconazole (Micatin) 2 % cream, Apply topically 2 times daily for 14 days. Apply to affected area 2times daily, Disp: 40 g, Rfl: 0 predniSONE (Deltasone) 10 MG tablet, 30mg x 5d then 20mg D6 to D10 then 10mg D11 to D15 then 5mg D16 to D25, Disp: 32 tablet, Rfl: 0 tadalafil (Cialis) 5 MG tablet, Take 5 mg by mouth in the morning., Disp: , Rfl: documented in this encounter Miscellaneous Notes * Assessment & Plan Note - Katherine Tai NP - 08/18/2025 2:40 PM EDTAssociated Problem(s): Balanitis Orders: Chlamydia/N. Gonorrhoeae, PCR, Urine miconazole (Micatin) 2 % cream; Apply topically 2 times daily for 14 days. Apply to affected area 2times daily documented in this encounter Plan of Treatment Scheduled Orders Name Type Priority Associated Diagnoses Orde r Schedule Chlamydia/N. Gonorrhoeae, PC R, Urine Lab Routine Balanitis Ordered: 08/18/2025 documented as of this encounter Visit Diagnoses Diagnosis Balanitis- Primary Balanoposthitis documented in this encounter Additional Health Concerns Assessment Noted Time PHQ-9 Depression Total Score: 19 023 10:28 AM EDT documented as of this encounter Care Teams Creel Cleaner Relationship Specialty Start Date End Date Andi Daly MD [address] [place] [id number] PCP - General Internal Medicine 03/18/20 documented as of this encounter
--- OUTSIDE RECORDS SUMMARY | 2025-08-18 18:33 | XMS_ITS | Encounter Summary ---
Author Organization [facility] Address [address] [place] [phone] Phone Care Team Providers Care Drop Wire Stringer Name Role Phone Shayan Vincent MD Primary Care Provider Unavailable Encounter Details Date Type Department Care Team (Late st Contact Info) Description 04/01/2023 Transcribe Orders [facility] [address] [place] [address] Jose Luis Herman MD [address] [facility] [address] [place] [address] Social History Tobacco Use Types Packs/Day Years [...] on filedocumented in this encounter Care Teams Drop Wire Stringer Relationship Specialty Start Date End Date Shayan Vincent MD PCP - General 02/11/23 documented as of this encounter Additional Source Comments The information contained in this document represents components of the legal health record. It is not the complete legal health record.[facility]
--- OUTSIDE RECORDS SUMMARY | 2025-08-18 18:33 | XMS_ITS | Clinical Summary ---
Author Organization [employer] Address [address] [facility] [address] [place] [address] Care Team Providers Care Retail Operations Manager Name Role Phone Andi Daly MD [...] Once per day. 10 g 2 4 Active fexofenadine (Rere) 180 MG tabletIndicatio ns:Seasonal allergies TAKE 1 TAB (180MG) BY MOUTH IF NEEDED EACH DAY (ALLERGIES). 90 tablet 1 5 Active predniSONE (Deltasone) 10 MG tablet 30mg x 5d then 20mg D6 to D10 then 10mg D11 to D15 then 5mg D16 to D25 32 tablet Active fluconazole (Diflucan) 150 MG tablet Take 1 tablet (150 mg) by mouth 1 (one) time per week for 14 days. 2 tablet 09/01/20 Active miconazole (Micatin) 2 % creamIndication s:Balanitis Apply topically 2 times daily for 14 days. Apply to affected area 2 times daily 40 g 09/01/20 Active Active Problems Problem Noted Date Diagnosed Date Balanitis 08/18/2025 Assessment & Plan (08/18/2025 4:34 PM EDT): Orders: Chlamydia/N. Gonorrhoeae, PCR, Urine miconazole (Micatin) 2 % cream; Apply topically 2 times daily for 14 days. Apply to affected area 2 times daily Dermatitis due to plant 08/01/2025 Assessment & [...] for treatment. PLAN: 1. Follow up with [facility]: Not recommended for follow-up 2. Patient goal [...] Annual physical exam 02/25/2023 Bipolar 1 disorder ([facility]) 02/05/2023 Assessment & Plan (04/07/2023 1:54 PM [...] Encounters Date Type Department Care Team Description 08/18/2025 2:40 PM EDT Office Visit [facility] [address] [place] [id number] Katherine Tai, BYRON Worley (Primary Dx) 08/18/2025 Travel 08/18/2025 Telephone [facility] [address] [place] [address] Andi Daly MD Nurse Triage 08/09/2025 6:00 PM EDT Office Visit [facility] [address] [place] [address] Andi Daly MD Tooth infection (Primary Dx) 08/09/2025 Travel 08/09/2025 Telephone [facility] [address] [place] [address] Andi Daly MD Nurse Triage 08/02/2025 Telephone [facility] [address] [place], [place] [phone] Andi Daly MD RV 08/01/2025 3:20 PM EDT Office Visit [facility] [address] [place] [address] Lety Garcia MD Dermatitis due to plant (Primary Dx) 08/01/2025 Travel 07/31/2025 Telephone [facility] [address] [place], [place] [phone] Andi Daly MD PCP Contact 06/20/2025 Telephone [facility] [address] [place] [address] [facility] from Last 3 Months Social History Tobacco [...] Mass Index 24.39 08/18/2025 2:13 PM EDT Plan of Treatment Health Maintenance [...] 2025 Disability Screening 08/01/2026 08/01/2025 Tobacco Screening 08/18/2026 08/18/2025 Lipid Panel 08/05/2027 08/05/2022 Zoster Vaccines (1 [...] a test for HCV RNA (test code 33022) is suggested. For additional information please refer to http://education.OneTouchEMR.com/faq/VRH75f9 (This link is being provided for informational/ educational purposes only.) 08/05/2022 11:3 3 AM EDT us Andi Rodriguez MD HISTORICAL/NON ORD ERABLE LABS Final Result CONVERTED LEGACY LABS * HIV 1/2 ANTIGEN/ANTIBODY,FOURTH [...] purpose. For additional information please refer to http://PropertyGuru.Total Eclipse/faq/KMX636 (This link is being provided for informational/ [...] factors. LDL-C is now calculated using the Daljit-Jeanie calculation, which is a validated novel method providing better accuracy than the Friedewald equation in the estimation of LDL-C. Daljit DANIEL et al. ELVIE. 2013;310(19): 5319-0796 (http://education.Uplike.[employer]ikwell Technologies/faq/DVL361) Non-HDL Cholesterol 107 <130 mg/dL (calc) CONVERTED [...] Most Recently [place] [address] [facility] [address] [facility] Address: [facility] [id number] [place] [id number] [place] [address] [place] [address] Care Teams Retail Operations Manager Relationship Specialty Start Date End Date KhanAndi Keating MD [address] [place] [address] BEBETO Benz [id number] PCP - General Internal Medicine 03/18/20
--- OUTSIDE RECORDS SUMMARY | 2025-08-18 18:34 | XMS_ITS | Encounter Summary ---
Author Organization [employer] Address [address] [facility] 7 [place] [address] Care Team Providers Care Laborer Cook House Name Role Phone Andi Daly MD Primary Care Prov ider Reason for Visit * Reason Onset Date Comments Nurse Triage 08/18/2025 Encounter Details Date Type Department Care Team ([facility] st Contact Info) Description 08/18/2025 Telephone [facility] [address] [place], [place] [phone] Andi Daly MD [address] [place] [address] Nurse Triage Social History Tobacco Use Types [...] Miscellaneous Notes * Telephone Encounter - Jaylin Hernandez RN - 08/18/2025 10:42 AM EDT T/C to pt who reports that he noticed when urinating this morning that his penis looked abnormal. Reports that he took a shower and noted that some skin is flaking off. Reports that he noticed a red ring around the tip of his foreskin. Reports that ring is not itchy. Reports that skin is a little bit swollen, it is slightly painful and he feels a burning sensation. No fever or discharge reported.Pt denies any urinary symptoms. Pt reports pmh of having a similar reaction to doxycyline in the past. Pt also reports that he recently had poison santy two weeks ago and is unsure if this is related. Pt also reports that he recently took antibiotics for tooth infection. Recommended that pt come to [facility] today for evaluation. Pt reports agreement with plan. Protocol Used: Penis and Scrotum Symptoms (Adult) Protocol-Based Disposition: See in Office or Video Visit Today Positive Triage Questions: * Patient wants to be seen * ALL other penis - scrotum symptoms (Exception: Painless rash < 24 hours duration.) * All higher-acuity triage questions were negative Care Advice Discussed: * Reasons To Call Back - You become worse * Telephone Encounter - Brayan Win - 08/18/2025 10:23 AM EDT Symptom: Penis Symptoms Outcome: Schedule an urgent appointment (within 4 hours) or talk to a nurse or provider soon Reason: Started within the past 3 days The caller accepted this outcome. Pt states there is skin flaking off his penis and like this ring around it as well. Pt thinks he has a fungal infection. Contact pt at [phone] documented in this encounter Plan of Treatment Not on file documented as of this encounter Visit Diagnoses Not on filedocumented in this encounter Additional Health Concerns Assessment Noted Time PHQ-9 Depression Total Score: 19 023 10:28 AM EDT documented as of this encounter Care Teams Laborer Cook House Relationship Specialty Start Date End Date Andi Daly MD [address] [place] [id number] PCP - General Internal Medicine 03/18/20 documented as of this encounter
--- OUTSIDE RECORDS SUMMARY | 2025-08-18 18:34 | XMS_ITS | Clinical Summary ---
Author Organization [facility] Address [address] [place] [phone] Phone Care Team Providers Care Sustainable Design Consultant Name Role Phone [facility] Primary Care Provider Unavailable Allergies No known active allergies Medications No known medications Active Problems No known active problems Encounters Date Type Department Care Team Description 08/15/2025 Transcribe Orders [facility] Rheumatology - Virtual Department [address] [place] [address] Amarilis Colmenares FNP Arthralgia (Primary Dx) from Last 3 Months Social History Tobacco [...] topic Medical Devices Not on file [place] [address] [address] [facility] [address] [place] [address] [place] [address] [place] [address] [place] [address] C3 ACO Care Teams Sustainable Design Consultant Relationship Specialty Start Date End Date CenterShayan MD PCP - General 02/11/23 Additional Source Comments The information contained in this document represents components of the legal health record. It is not the complete legal health record.[facility]
--- OUTSIDE RECORDS SUMMARY | 2025-08-18 18:34 | XMS_ITS | Encounter Summary ---
Author Organization [facility] Address [address] [place] [address] [place] [phone] Phone Care Team Providers Care Construction Checker Name Role Phone [facility] Primary Care Provider Unavailable Reason for Referral * Consultation (Within 1 month) - New Request Specialty Diagnoses / Procedures Referred By Nathalie navarro Referred To Contact Rheumatology Diagnoses Arthralgia Amarilis Colmenares FNP [address] [place] [address] Phone: tel: fax: [facility] [address] [place] [address] Phone: tel: Referral ID Status Reason Start Date Expiration Date V isits Requested Visits Authorized [id number] New Request 08/15/2025 08/15/2026 1 1 Encounter Details Date Type Department Care Team (Latest Contact Info) Description 08/15/2025 Transcribe Orders [facility] Rheumatology - Virtual Department [address] [place] [address] Amarilis Colmenares FNP [address] [place] [address] Arthralgia (Primary Dx) Social History Tobacco Use Types [...] as of this encounter Plan of Treatment Scheduled Referrals Name Type Priority Associated Diagnoses Order Schedule Ambulatory referral to [facility] Rheumatology Outpatient Referral Routine Arthralgia Ordered: 08/15/2025 documented as of this encounter Visit Diagnoses Diagnosis Arthralgia- Primary Pain in joint, site unspecified documented in this encounter Care Teams Construction Checker Relationship Specialty Start Date End Date CenterShayan MD PCP - General 02/11/23 documented as of this encounter Additional Source Comments The information contained in this document represents components of the legal health record. It is not the complete legal health record.[facility]
--- OUTSIDE RECORDS SUMMARY | 2025-08-18 18:34 | XMS_ITS | Encounter Summary ---
Author Organization [email or web address] Address [address] [place] [address] Care Team Providers Care Emt Driver Name Role Phone Andi Daly MD Primary Care Prov ider Encounter Details Date Type Department Care Team (Latest Contact Info) Description 08/18/2025 Travel Social History Tobacco Use Types Packs/Day Years [...] documented as of this encounter Care Teams Emt Driver Relationship Specialty Start Date End Date Andi Daly MD [address] [place] [phone] PCP - General Internal Medicine 03/18/20 documented as of this encounter
--- OUTSIDE RECORDS SUMMARY | 2025-08-18 18:34 | XMS_ITS | Encounter Summary ---
Author Organization [employer] Address [address] [facility] 7t [place] [address] Care Team Providers Care Fire Alarm Technician Name Role Phone Andi Daly MD Primary Care Prov ider Encounter Details Date Type Department Care Team ([facility] st Contact Info) Description 09/29/2024 Telephone [facility] [address] [place] [address] Andi Daly MD [address] [place], [place] [phone] Social History Tobacco Use Types Packs/Day Years [...] documented as of this encounter Care Teams Fire Alarm Technician Relationship Specialty Start Date End Date Andi Daly MD [address] [place] [phone] PCP - General Internal Medicine 03/18/20 documented as of this encounter
--- OUTSIDE RECORDS SUMMARY | 2025-08-18 18:35 | XMS_ITS | Encounter Summary ---
Author Organization [employer] Address [address] [facility] 7t [place] [address] Care Team Providers Care Fiberglass Ski Maker Name Role Phone Andi Daly MD Primary Care Prov ider Reason for Visit * Reason Onset Date Comments Nurse Triage 08/16/2024 Encounter Details Date Type Department Care Team (Late st Contact Info) Description 08/16/2024 Telephone [facility] [address] [place] [address] Andi Daly MD [address] [place] [address] Nurse Triage Social History Tobacco Use Types [...] wheezing or difficulty breathing. ASK apt in [facility] today at 300pm. Home care reviewed. Insurance [...] Wheezing (high-pitched whistling sound) Contact pt at [phone] documented in this encounter Plan of Treatment Not on file documented as of this encounter Visit Diagnoses Not on filedocumented in this encounter Additional Health Concerns Assessment Noted Time PHQ-9 Depression Total Score: 19 023 10:28 AM EDT documented as of this encounter Care Teams Fiberglass Ski Maker Relationship Specialty Start Date End Date Andi Daly MD [address] [place] [phone] PCP - General Internal Medicine 03/18/20 documented as of this encounter
--- OUTSIDE RECORDS SUMMARY | 2025-08-18 18:35 | XMS_ITS | Encounter Summary ---
Author Organization [employer] Address [address] [facility] 7 [place] [address] Care Team Providers Care Field Support Technician Name Role Phone Andi Daly MD Primary Care Prov ider Reason for Visit * Reason Onset Date Comments Appointment Request 01/12/2023 Encounter Details Date Type Department Care Team ([facility] st Contact Info) Description 01/12/2023 Telephone [facility] [address] [place], [place] [phone] Andi Daly MD [address] [place] [address] Appointment Request Social History Tobacco Use Types [...] appt for Physical. Please contact pt at [phone] documented in this encounter Plan of Treatment Not on file documented as of this encounter Visit Diagnoses Not on filedocumented in this encounter Additional Health Concerns Assessment Noted Time PHQ-9 Depression Total Score: 0 12/02/19 23 10:21 AM EST documented as of this encounter Care Teams Field Support Technician Relationship Specialty Start Date End Date Andi Daly MD [address] [place] [address] PCP - General Internal Medicine 03/18/20 documented as of this encounter
[2025-08-19 12:49] LABS: CT PCR Urine NOT DETECTED (Not Detect.); NG PCR Urine NOT DETECTED (Not Detect.)
== END 2025-08-18 18:31 | disposition home or self-care (01) ==
LOC: HO.HHCLNP 18:30
PROVIDERS: Visit Provider Nurse Practitioner Family
DX: Z20.2 Contact with and (suspected) exposure to infections with a predominantly sexual mode of transmission (principal); N48.1 Balanitis
CPT/HCPCS: 87491; 87591

== ENCOUNTER 2025-10-05 14:18 | Outpatient (REF) | payer OTHER, SELFPAY ==
--- OUTSIDE RECORDS SUMMARY | 2025-10-04 16:40 | XMS_ITS | Encounter Summary ---
Author Organization [employer] Address [address] [facility] [address] [address] [place] [address] Care Team Providers Care Funeral Home General Manager Name Role Phone Andi Daly MD Primary Care Prov ider Encounter Details Date Type Department Care Team ([facility] st Contact Info) Description 10/04/2025 4:40 PM EST Office Visit [facility] [address] [place], [place] [phone] Social History Tobacco Use Types Packs/Day Years [...] Sign Reading Time Taken Comments Blood Pressure 123/79 10/04/2025 3:20 PM EST Pulse 77 10/04/2025 3:20 PM EST Temperature 36.3 C (97.4 F) 10/04/2025 3:20 PM EST Respiratory Rate 16 10/04/2025 3:20 PM EST Oxygen Saturation 99% 10/04/2025 3:20 PM EST Inhaled Oxygen Concentration - - Weight - - Height - - Body Mass Index - - documented in this encounter Plan of Treatment Upcoming Encounters Date Type Department Care Team (Late st Contact Info) Description 10/06/2025 8:45 AM EST Office Visit [facility] [address] [place] [address] Andi Daly MD [address] [place] [address] documented as of this encounter Visit Diagnoses Not on filedocumented in this encounter Additional Health Concerns Assessment Noted Time PHQ-9 Depression Total Score: 19 023 10:28 AM EDT documented as of this encounter Care Teams Funeral Home General Manager Relationship Specialty Start Date End Date Andi Daly MD [address] [place] [address] PCP - General Internal Medicine 03/18/20 documented as of this encounter
--- NOTE | ~2025-10-05 | XR_ITS ---
EXAMINATION: XR CHEST CLINICAL INFORMATION: pt with ongoing episodes of cough, right side chest pain ,pleuritic COMPARISON: June 26, 2020 TECHNIQUE: PA and lateral views. FINDINGS: Pulmonary reticular nodular pattern. No consolidation, pleural effusion or pneumothorax. No gross hyperinflation. Increased AP diameter of thorax. Cardiomediastinal silhouette size is normal. Multilevel thoracic spondylosis. Dextroconvex curvature of the mid thoracic spine. XR/XR chest 2V IMPRESSION: Chronic interstitial lung disease. Stable. Multilevel spondylosis and dextroconvex scoliosis. Electronically signed by: Gennaro De Los Santos MD 10/05/2025 02:30 PM CRISTY
--- OUTSIDE RECORDS SUMMARY | 2025-10-05 13:20 | XMS_ITS | Encounter Summary ---
Author Organization [employer] Address [address] [facility] 7t [place] [address] Care Team Providers Care Computer Information Systems Professor Name Role Phone Andi Daly MD Primary Care Prov ider Reason for Visit * Reason Comments Cough Encounter Details Date Type Department Care Team ([facility] st Contact Info) Description 10/05/2025 1:20 PM EST Office Visit [facility] [address] [place] [address] Chest pain, unspecified type (Primary Dx); Cough in adult patient; Cough, unspecified type Social History Tobacco Use Types Packs/Day Years [...] Sign Reading Time Taken Comments Blood Pressure 129/76 10/05/2025 1:32 PM EST Pulse 73 10/05/2025 1:32 PM EST Temperature 36.7 C (98 F) 10/05/2025 1:32 PM EST Respiratory Rate 18 10/05/2025 1:32 PM EST Oxygen Saturation 99% 10/05/2025 1:32 PM EST Inhaled Oxygen Concentration - - Weight 81.6 kg (180 lb) 10/05/2025 1:32 PM EST Height - - Body Mass Index 23.11 08/18/2025 2:13 PM EDT documented in this encounter Plan of Treatment Upcoming Encounters Date Type Department Care Team (Late st Contact Info) Description 10/06/2025 8:45 AM EST Office Visit [facility] [address] [place] [address] KhanAndi Keating MD [address] [place] [address] Scheduled Orders Name Type Priority Associated Diagnoses Orde r Schedule Hepatitis B surface antigen, EIA Lab Routine Cough, unspecified type Expected: 10/05/2025 (Approximate), Expires: 10/05/2026 Hepatitis B Core Antibody, Total Lab Routine Cough, unspecified type Expected: 10/05/2025 (Approximate), Expires: 10/05/2026 Hepatitis B Surface Antibody, Qualitative Lab Routine Cough, unspecified type Expected: 10/05/2025 (Approximate), Expires: 10/05/2026 Hepatitis C Antibody with Reflex to HCV, RNA, Quantitative, Real-Time PCR Lab Routine Cough, unspecified type Expected: 10/05/2025 (Approximate), Expires: 10/05/2026 HIV-1/2 Antigen and Antibodies, Fourth Generation, with Reflexes Lab Routine Cough, unspecified type Expected: 10/05/2025 (Approximate), Expires: 10/05/2026 Syphilis Screen Lab Routine Cough, unspecified type Expected: 10/05/2025 (Approximate), Expires: 10/05/2026 T-SPOT .TB Lab Routine Cough, unspecified type Expected: 10/05/2025 (Approximate), Expires: 10/05/2026 D Dimer High Sensitivity Lab Routine Chest pain, unspecified type Expected: 10/05/2025, Expires: 10/05/2026 documented as of this encounter Procedures Procedure Name Priority Date/Time Associated Diagnosis Comments ECG 12-LEAD Routine 10/05/2025 2:57 PM EST Chest pain, unspecified type TSH W/REFLEX TO FT4 Routine 10/05/2025 2 :34 PM EST Cough, unspecified type CBC WITH AUTO DIFFERENTIAL Routine 10/05/2025 2:34 PM EST Cough, unspecified type HEMOGLOBIN A1C Routine 10/05/2025 2:34 PM EST Cough, unspecified type COMPREHENSIVE METABOLIC PANEL Routine 10/05/2025 2:34 PM EST Cough, unspecified type XR CHEST 2 VIEWS Routine 10/05/2025 2:26 PM EST Cough, unspecified type POCT INFLUENZA B (ID NOW RAPID MOLECULAR) Routine 10/05/2025 2:13 PM EST Cough in adult patient POCT INFLUENZA A (ID NOW RAPID MOLECULAR) Routine 10/05/2025 2:13 PM EST Cough in adult patient POCT RAPID COVID ANTIGEN Routine 10/05/2025 1:36 PM EST Cough in adult patient documented in this encounter Results * ECG 12 lead (10/05/2025 2:57 PM EST) Narrative Piper Katz MD - 10/05/2025 2:57 PM EST EKG today NSR ,HR 61x'.QTc 419 no obvious ischemic changes noted ,slight intraventricular conduction delay us Piper Manuel MD ECG ORDERABLES F inal Result * TSH with Reflex to Free T4 (10/05/2025 2:34 PM EST) TSH reflex Free T4 0.83 0.32 - 4.0 uIU/mL [facility] Blood 10/05/2025 2:34 PM EST 10/05/2025 4:00 PM EST Piper Manuel MD LAB BLOOD ORDERAB LES Final Result Performing Organization Address [facility]/ZIP Co de Phone Number [facility] [address] [place] [phone] * Hemoglobin A1c (10/05/2025 2:34 PM EST) Hemoglobin A1c 5.4 <6.0 % [facility] Comment:Hemoglobin A1C Refer ence Range Adults: 4.8 - 6.0 % Non diabetic: < 6.0 % Goal: < 7.0 %Additional Action Suggested: > 8.0 %Note: Hemoglobin A1c results are invalid for patients with abnormal amounts of HbF. Blood transfusions may impact the HbA1c concentration in the patient sample. Estimated Average Glucose 108 mg/dL [facility] Comment:eAG = Estimated ave rage glucose which is %A1C expressed asaverage glucose, using the formula of the H7E-EpgiyunVcoikpo Glucose study (ADAG), Diabetes Care, Vol.31,#8,May. 2007 Blood Venous blood specimen / Unknown 10/05/2025 2:34 PM EST 10/05/2025 4:00 PM EST Piper Manuel MD LAB BLOOD ORDERAB LES Final Result Performing Organization Address City/[facility]/ZIP Co de Phone Number [facility] [address] [place] [phone] * (ABNORMAL) Comprehensive Metabolic Panel (10/05/2025 2:34 PM EST) Pathologist [facility] Sodium 138 135 - 145 mmol/L [facility] Potassium 4.6 3.3 - 5.1 mmol/L [facility] Chloride 105 96 - 108 mmol/L [facility] Carbon Dioxide 28 22 - 29 mmol/L [facility] Anion Gap 10(L) 12 - 20 [facility] Urea Nitrogen (BUN) 18(H) 9 - 16 mg/dL [facility] Creatinine, Serum 0.69 0.5 - 1.4 mg/dL [facility] Estimated Glomerular Filt Rate >60 [facility] Comment:Chronic Kidney Disea se: Estimated GFR < 60 mL/min/1.96e1Fkjjri Kidney Disease: Estimated GFR < 15 mL/min/1.73m2 Glucose 86 60 - 115 mg/dL [facility] Calcium 9.8 8.4 - 10.2 mg/dL [facility] Bilirubin, Total 0.5 0.0 - 1.0 mg/dL [facility] Aspartate Amino Transferase 32 5 - 37 U/L [facility] Alanine Aminotransferase 39 0 - 40 U/L [facility] Total Protein 7.8 6.5 - 8.0 g/dL [facility] Albumin Level 5.0 3.5 - 5.0 g/dL [facility] Alkaline Phosphatase 46 39 - 117 U/L [facility] Blood Venous blood specimen / Unknown 10/05/2025 2:34 PM EST 10/05/2025 4:00 PM EST us Piper Manuel MD LAB BLOOD ORDERAB LES Final Result [facility] [address] [place] [phone] * (ABNORMAL) CBC auto differential (10/05/2025 2:34 PM EST) White Blood Count 4.3(L) 4.8 - 10.8 X10*3/uL [facility] Red Blood Count 4.76 4.60 - 5.80 X10*6/uL [facility] Hemoglobin 14.0 14.0 - 18.0 g/dl [facility] Hematocrit 42.3 42.0 - 52.0 % [facility] Mean Corpuscular Volume 88.9 80.0 - 98.0 fL [facility] Mean Corpuscular Hemoglobin 29.4 27.0 - 33.0 pg [facility] Mean Corpuscular HGB Conc 33.1 31.0 - 36.0 g/dl [facility] Red Cell Distribution Width 13.9 11.0 - 16.0 % [facility] Platelet Count 224 160 - 400 X10*3/uL [facility] Mean Platelet Volume 11.0 9.4 - 12.4 fL [facility] Neutrophils Percent Auto 49.6 45 - 73 % [facility] Imm Gran Pct Auto 0.2 0.0 - 0.4 % [facility] Lymphocytes Percent Auto 39.9 20 - 40 % [facility] Monocytes Percent Auto 7.0 2 - 11 % [facility] Eosinophils Percent Auto 2.6 0 - 4 % [facility] Basophils Percent Auto 0.7 0 - 2 % [facility] NRBC Pct Auto 0.0 0.0 - 0.2 /100WBC [facility] Neutrophils Absolute Auto 2.1 2.0 - 8.3 x10*3/uL [facility] Imm Gran Abs Auto 0.01 0.00 - 0.03 X10*3/uL [facility] Lymphocytes Absolute Auto 1.7 1.2 - 4.9 X10*3/uL [facility] Monocytes Absolute Auto 0.3 0.1 - 1.2 X10*3/uL [facility] Eosinophils Absolute Auto 0.1 0.0 - 0.4 X10*3/uL [facility] Basophils Absolute Auto 0.0 0.0 - 0.2 X10*3/uL [facility] NRBC Abs Auto 0.000 0.0 - 0.012 X10*3/uL [facility] Blood Venous blood specimen / Unknown 10/05/2025 2:34 PM EST 10/05/2025 4:00 PM EST us Piper Manuel MD LAB BLOOD ORDERAB LES Final Result [facility] [address] [place] [phone] * XR Chest 2 Views (10/05/2025 2:26 PM EST) Anatomical Region Laterality Modality Chest Radiographic Lauren ging 10/05/2025 2:26 PM EST Narrative 10/05/2025 2:34 PM EST [facility] [address] [place] [address] XRay Report Signed Patient: Tyree Vázquez MR#: [id number] 43 : 1990 Acct:[id number] Age/Sex: 35 / M ADM Date: 10/05/25 Loc: [facility] Attending Dr: Piper Manuel MD Ordering Physician: Piper Katz MD Date of Service: 10/05/25 Procedure(s): XR chest 2V Accession Number(s): [id number] cc: Piper Katz MD Reason for Exam: pt with ongoing episodes of cough, right side chest pain ,pleuritic EXAMINATION: XR CHEST CLINICAL INFORMATION: pt with ongoing episodes of cough, right side chest pain ,pleuritic COMPARISON: June 26, 2020 TECHNIQUE: PA and lateral views. FINDINGS: Pulmonary reticular nodular pattern. No consolidation, pleural effusion or pneumothorax. No gross hyperinflation. Increased AP diameter of thorax. Cardiomediastinal silhouette size is normal. Multilevel thoracic spondylosis. Dextroconvex curvature of the mid thoracic spine. XR/XR chest 2V IMPRESSION: Chronic interstitial lung disease. Stable. Multilevel spondylosis and dextroconvex scoliosis. Electronically signed by: Gennaro De Los Santos MD 10/05/2025 02:30 PM EST RP Dictated By: Gennaro Dorsey MD Signed By: <Electronically signed by Gennaro Davis MD in OV> 10/05/25 1430 DD/ 25 TD/TT: 10/05/251425 Senior Education Specialist: Procedure Note Donotuseinterpreter, Image - 10/05/2025 [facility] [address] [place] [address] XRay Report Signed Patient: Tyree Vázquez HMR#: [id number] 42 : 1990Acct:[id number] Age/Sex: 35 / MADM Date: 10/05/25 Loc: [facility] Attending Dr: Piper Manuel MD Ordering Physician: Piper Katz MD Date of Service: 10/05/25 Procedure(s): XR chest 2V Accession Number(s): [id number] cc: Piper Katz MD Reason for Exam: pt with ongoing episodes of cough, right side chest pain,pleuritic EXAMINATION: XR CHEST CLINICAL INFORMATION: pt with ongoing episodes of cough, right side chest pain ,pleuritic COMPARISON: June 26, 2020 TECHNIQUE: PA and lateral views. FINDINGS: Pulmonary reticular nodular pattern. No consolidation, pleural effusion or pneumothorax. No gross hyperinflation. Increased AP diameter of thorax. Cardiomediastinal silhouette size is normal. Multilevel thoracic spondylosis. Dextroconvex curvature of the mid thoracic spine. XR/XR chest 2V IMPRESSION: Chronic interstitial lung disease. Stable. Multilevel spondylosis and dextroconvex scoliosis. Electronically signed by: Gennaro De Los Santos MD 10/05/2025 02:30 PM EST Dictated By: Gennaro Dorsey MD Signed By: <Electronically signed by Gennaro Davis MDin OV> 10/05/25 1430 DD/ 1426 TD/TT: 10/05/251425 Senior Education Specialist: Piper Manuel MD IMG XR PROCEDURES Final Result * Influenza A (ID NOW Rapid Molecular) (10/05/2025 2:13 PM EST) Influenza A Negative Negative, Indeterminate [facility] Swab 10/05/2025 2:13 PM EST Piper Manuel MD POINT OF CARE ADENIKE T ENTER/EDIT ORDERABLES Final Result Performing Organization Address [facility] Co de Phone Number [facility] [address] [place] [phone] * Influenza B (ID NOW Rapid Molecular) (10/05/2025 2:13 PM EST) Influenza B Negative Negative, Indeterminate [facility] Swab 10/05/2025 2:13 PM EST Piper Manuel MD POINT OF CARE ADENIKE T ENTER/EDIT ORDERABLES Final Result Performing Organization Address [facility] Co de Phone Number [facility] [address] [place] [phone] * POCT Rapid COVID Ag (10/05/2025 1:36 PM EST) Rapid COVID Ag Negative Swab 10/05/2025 1:36 PM EST Piper Manuel MD POINT OF CARE ADENIKE T ENTER/EDIT ORDERABLES Final Result documented in this encounter Visit Diagnoses Diagnosis Chest pain, unspecified type- Primary Cough, unspecified type documented in this encounter Additional Health Concerns Assessment Noted Time PHQ-9 Depression Total Score: 19 023 10:28 AM EDT documented as of this encounter Care Teams Computer Information Systems Professor Relationship Specialty Start Date End Date Andi Daly MD [address] [place] [phone] PCP - General Internal Medicine 03/18/20 documented as of this encounter
--- OUTSIDE RECORDS SUMMARY | 2025-10-05 18:30 | XMS_ITS | Clinical Summary ---
Author Organization [employer] Address [address] [facility] 7[address] [place] [address] Care Team Providers Care Account Classification Clerk Name Role Phone Andi Daly MD [...] 3 times daily. 90 tablet 4 Active Additional Information Patient not taking.Reported on 10/05/2025 fluticasone (Flonase Sensimist) 27.5 MCG/SPRAY nasal sprayIndication s:Acute cough,Seasonal allergies Administer 1-2 sprays into each nostril Once per day. 10 g 2 4 Active Additional Information Patient not taking.Reported on 10/05/2025 fexofenadine (Rere) 180 MG tabletIndicatio ns:Seasonal allergies TAKE 1 TAB (180MG) BY MOUTH IF NEEDED EACH DAY (ALLERGIES). 90 tablet 1 5 Active Additional Information Patient not taking.Reported on 10/05/2025 predniSONE (Deltasone) 10 MG tablet 30mg x 5d then 20mg D6 to D10 then 10mg D11 to D15 then 5mg D16 to D25 32 tablet Active Additional Information Patient not taking.Reported on 10/05/2025 miconazole (Micatin) 2 % creamIndication s:Balanitis Apply topically 2 times daily. Apply to affected area 2 times daily 80 g 09/30/20 Active Problems Problem Noted Date Diagnosed Date [...] Annual physical exam 02/25/2023 Bipolar 1 disorder ([facility]/HCC) 02/05/2023 Assessment & Plan (04/07/2023 1:54 PM [...] Encounters Date Type Department Care Team Description 10/05/2025 1:20 PM EST Office Visit [facility] [address] [place] [address] 32962 Chest pain, unspecified type (Primary Dx); Cough in adult patient; Cough, unspecified type 10/05/2025 Telephone [facility] [address] [place] [address] 45259 Andi Daly MD In Person Nurse Triage 10/05/2025 Travel 10/04/2025 4:40 PM EST Office Visit [facility] [address] [place] [address] 83019 10/04/2025 Telephone [facility] [address] [place] [address] 55275 Elisa Huerta NP in person triage 10/04/2025 Travel 10/02/2025 Telephone [facility] [address] [place] [address] 39236 Andi Daly MD Nurse Triage 08/31/2025 Orders Only [facility] [address] [place] [address] Andi Daly MD Balanitis 08/30/2025 Telephone [facility] [address] [place] [address] 50226 Andi Daly MD Medication Question 08/28/2025 Refill [facility] [address] [place] [address] Andi Daly MD Balanitis 08/22/2025 Telephone [facility] [address] [place] [phone] Katherine Tai, [place] Results 08/18/2025 2:40 PM EDT Office Visit [facility] [address] [place] [address] 60579 Katherine Tai NP Balanitis (Primary Dx) 08/18/2025 Travel 08/18/2025 Telephone [facility] [address] [place] [address] 37610 Andi aDly MD Nurse Triage 08/09/2025 6:00 PM EDT Office Visit [facility] [address] [place] [address] 10379 Andi Daly MD Tooth infection (Primary Dx) 08/09/2025 Travel 08/09/2025 Telephone [facility] [address] [place] [address] 94374 Andi Daly MD Nurse Triage 08/02/2025 Telephone [facility] [address] [place] [address] 40658 Andi Daly MD RV 08/01/2025 3:20 PM EDT Office Visit [facility] [address] [place] [address]8418 Lety Garcia MD Dermatitis due to plant (Primary Dx) 08/01/2025 Travel 07/31/2025 Telephone [facility] [address] [place] [address] Andi Daly MD PCP Contact from Last 3 Months Social History Tobacco [...] (180 lb) 10/05/2025 1:32 PM EST Height 188 cm (6' 2 ) 08/18/2025 2:13 PM EDT Body Mass Index 23.11 08/18/2025 2:13 PM EDT Plan of Treatment Upcoming Encounters Date Type Department Care Team ([facility] st Contact Info) Description 10/06/2025 8:45 AM EST Office Visit [facility] [address] [place] [address] Andi Daly MD [address] [place] [address] Health Maintenance Due Date Last Done Comments [...] 2 :34 PM EST Cough, unspecified type HEMOGLOBIN A1C Routine 10/05/2025 2:34 PM EST Cough, unspecified type COMPREHENSIVE METABOLIC PANEL Routine 10/05/2025 2:34 PM EST Cough, unspecified type CBC WITH AUTO DIFFERENTIAL Routine 10/05/2025 2:34 PM EST Cough, unspecified type RHEUMATOID FACTOR Routine 10/05/2025 2:3 4 PM EST Arthralgia, unspecified joint C-REACTIVE PROTEIN Routine 10/05/2025 2: 34 PM EST Arthralgia, unspecified joint SED RATE BY MODIFIED WESTERGREN Routine 10/05/2025 2:34 PM EST Arthralgia, unspecified joint XR CHEST 2 VIEWS Routine 10/05/2025 2:26 PM EST Cough, unspecified type POCT INFLUENZA A (ID NOW RAPID MOLECULAR) Routine 10/05/2025 2:13 PM EST Cough in adult patient POCT INFLUENZA B (ID NOW RAPID MOLECULAR) Routine 10/05/2025 2:13 PM EST Cough in adult patient POCT RAPID COVID ANTIGEN Routine 10/05/2025 1:36 PM EST Cough in adult patient CHLAMYDIA/TRICHOMONAS/ NEISSERIA GONORRHOEAE, PCR, URINE Routine 08/18/2025 3:08 PM EDT Balanitis ZZZ HISTORICAL HEPATITIS C AB W/REFL TO HCV RNA, QN, PCR Routine 08/05/2022 11:33 AM EDT HIV 1/2 ANTIGEN/ANTIBODY, FOURTH GENERATION W/RFL Routine 08/05/2022 11:33 AM EDT LIPID PANEL, STANDARD Routine 08/05/2022 11:33 AM EDT from Last 3 Months or Most Recently Relevant to Health Maintenance Results * ECG 12 lead (10/05/2025 2:57 PM EST) Narrative Piper Katz MD - 10/05/2025 2:57 PM EST EKG today NSR ,HR 61x'.QTc 419 no obvious ischemic changes noted ,slight intraventricular conduction delay us Piper Manuel MD ECG ORDERABLES F inal Result * TSH with Reflex to Free T4 (10/05/2025 2:34 PM EST) Pathologist [facility] TSH reflex Free T4 0.83 0.32 - 4.0 uIU/mL [facility] Blood 10/05/2025 2:34 PM EST 10/05/2025 4:00 PM EST us Piper Manuel MD LAB BLOOD ORDERAB LES Final Result [facility] [address] [place] [phone] * (ABNORMAL) CBC auto differential (10/05/2025 2:34 PM EST) White Blood Count 4.3(L) 4.8 - 10.8 X10*3/uL [facility] Red Blood Count 4.76 4.60 - 5.80 X10*6/uL [facility] Hemoglobin 14.0 14.0 - 18.0 g/dl [facility] Hematocrit 42.3 42.0 - 52.0 % [facility] Mean Corpuscular Volume 88.9 80.0 - 98.0 fL [facility] Mean Corpuscular Hemoglobin 29.4 27.0 - 33.0 pg [facility] Mean Corpuscular HGB Conc 33.1 31.0 - 36.0 g/dl [facility] Red Cell Distribution Width 13.9 11.0 - 16.0 % [facility] Platelet Count 224 160 - 400 X10*3/uL [facility] Mean Platelet Volume 11.0 9.4 - 12.4 fL [facility] Neutrophils Percent Auto 49.6 45 - 73 % [facility] Imm Gran Pct Auto 0.2 0.0 - 0.4 % [facility] Lymphocytes Percent Auto 39.9 20 - 40 % [facility] Monocytes Percent Auto 7.0 2 - 11 % [facility] Eosinophils Percent Auto 2.6 0 - 4 % [facility] Basophils Percent Auto 0.7 0 - 2 % [facility] NRBC Pct Auto 0.0 0.0 - 0.2 /100WBC [facility] Neutrophils Absolute Auto 2.1 2.0 - 8.3 x10*3/uL [facility] Imm Gran Abs Auto 0.01 0.00 - 0.03 X10*3/uL [facility] Lymphocytes Absolute Auto 1.7 1.2 - 4.9 X10*3/uL [facility] Monocytes Absolute Auto 0.3 0.1 - 1.2 X10*3/uL [facility] Eosinophils Absolute Auto 0.1 0.0 - 0.4 X10*3/uL [facility] Basophils Absolute Auto 0.0 0.0 - 0.2 X10*3/uL [facility] NRBC Abs Auto 0.000 0.0 - 0.012 X10*3/uL [facility] Blood Venous blood specimen / Unknown 10/05/2025 2:34 PM EST 10/05/2025 4:00 PM EST Piper Manuel MD LAB BLOOD ORDERAB LES Final Result Performing Organization Address [facility]/[place] Co de Phone Number [facility] [address] [place] [address] [phone] * Sed Rate by Modified Mahadergren (10/05/2025 2:34 PM EST) Pathologist [facility] Erythrocyte Sedimentation Rate 11 1 - 15 MM/HR [facility] Comment:Patients with polycy themia and many hemoglobin abnormalitiesmay have depressed sed rates whereas patients with anemiamay have elevated sed rates. Blood Venous blood specimen / Unknown 10/05/2025 2:34 PM EST 10/05/2025 4:00 PM EST [facility] LAB BLOOD ORDERABLES Final Re sult Performing Organization Address [facility] Co de Phone Number [facility] [address] [place] [address] [phone] * Rheumatoid Factor (10/05/2025 2:34 PM EST) [facility] Rheumatoid Factor <13.0 <15.0 IU/mL [facility] Blood Venous blood specimen / Unknown 10/05/2025 2:34 PM EST 10/05/2025 4:00 PM EST [facility] SALES UTILITY REPRESENTATIVE LAB BLOOD ORDERABLES Final Re sult Performing Organization Address [facility]/[place] Co de Phone Number [facility] [address] [place] [address] [phone] * C-reactive Protein (10/05/2025 2:34 PM EST) [facility] C Reactive Protein <0.10 < or = 0.50 mg/dL [facility] Blood Venous blood specimen / Unknown 10/05/2025 2:34 PM EST 10/05/2025 4:00 PM EST [facility] LAB BLOOD ORDERABLES Final Re sult Performing Organization Address [facility]/ZIP Co de Phone Number [facility] [address] [place] [phone] * Hemoglobin A1c (10/05/2025 2:34 PM EST) Hemoglobin A1c 5.4 <6.0 % [facility] Comment:Hemoglobin A1C Refer ence Range Adults: 4.8 - 6.0 % Non diabetic: < 6.0 % Goal: < 7.0 %Additional Action Suggested: > 8.0 %Note: Hemoglobin A1c results are invalid for patients with abnormal amounts of HbF. Blood transfusions may impact the HbA1c concentration in the patient sample. Estimated Average Glucose 108 mg/dL [facility] Comment:eAG = Estimated ave rage glucose which is %A1C expressed asaverage glucose, using the formula of the [id number] Glucose study (ADAG), Diabetes Care, Vol.31,#8,May. 2007 Blood Venous blood specimen / Unknown 10/05/2025 2:34 PM EST 10/05/2025 4:00 PM EST Piper Manuel MD LAB BLOOD ORDERAB LES Final Result Performing Organization Address [facility]/ZIP Co de Phone Number [facility] [address] [place] [phone] * (ABNORMAL) Comprehensive Metabolic Panel (10/05/2025 2:34 PM EST) Sodium 138 135 - 145 mmol/L [facility] Potassium 4.6 3.3 - 5.1 mmol/L [facility] Chloride 105 96 - 108 mmol/L [facility] Carbon Dioxide 28 22 - 29 mmol/L [facility] Anion Gap 10(L) 12 - 20 [facility] Urea Nitrogen (BUN) 18(H) 9 - 16 mg/dL [facility] Creatinine, Serum 0.69 0.5 - 1.4 mg/dL [facility] Estimated Glomerular Filt Rate >60 [facility] Comment:Chronic Kidney Disea se: Estimated GFR < 60 mL/min/1.12p7Uqnige Kidney Disease: Estimated GFR < 15 mL/min/1.73m2 Glucose 86 60 - 115 mg/dL [facility] Calcium 9.8 8.4 - 10.2 mg/dL [facility] Bilirubin, Total 0.5 0.0 - 1.0 mg/dL [facility] Aspartate Amino Transferase 32 5 - 37 U/L [facility] Alanine Aminotransferase 39 0 - 40 U/L [facility] Total Protein 7.8 6.5 - 8.0 g/dL [facility] Albumin Level 5.0 3.5 - 5.0 g/dL [facility] Alkaline Phosphatase 46 39 - 117 U/L [facility] Blood Venous blood specimen / Unknown 10/05/2025 2:34 PM EST 10/05/2025 4:00 PM EST us Piper Manuel MD LAB BLOOD ORDERAB LES Final Result Performing Organization Address City/State/[place] Co de Phone Number [facility] [address] [place] [phone] * XR Chest 2 Views (10/05/2025 2:26 PM EST) Anatomical Region Laterality Modality Chest Radiographic Lauren ging 10/05/2025 2:26 PM EST Narrative 10/05/2025 2:34 PM EST [facility] [address] [place] [address] XRay Report Signed Patient: Tyree Vázquez MR#: [id number] 42 : 1990 Acct:[id number] Age/Sex: 35 / M ADM Date: 10/05/25 [facility]: Piper Manuel MD Ordering Physician: Piper Katz MD Date of Service: 10/05/25 Procedure(s): XR chest 2V Accession Number(s): [id number] cc: Piper Katz MD Reason for Exam: [...] Davis MD in OV> 10/05/25 1430 DD/ 1426 TD/TT: 10/05/25 1426 Ground Crew Linesman: Procedure Note Donotuseinterpreter, Image - 10/05/[address] [address] XRay Report Signed Patient: Tyree Vázquez R#: [id number] 42 : 1990Acct:[id number] Age/Sex: 35 / MADM Date: 10/05/25 Loc: [facility] Attending Dr: Piper Manuel MD Ordering Physician: Piper Katz MD Date of Service: 10/05/25 Procedure(s): XR chest 2V Accession Number(s): [id number] cc: Piper Katz MD Reason for Exam: [...] MDin OV> 10/05/25 1430 DD/ 1426 TD/TT: 10/05/25 1426 Ground Crew Linesman: us Piper Manuel MD IMG XR PROCEDURES Final Result * Influenza B (ID NOW Rapid Molecular) (10/05/2025 2:13 PM EST) Influenza B Negative Negative, Indeterminate [facility] Swab 10/05/2025 2:13 PM EST us Piper Manuel MD POINT OF CARE ADENIKE T ENTER/EDIT ORDERABLES Final Result Performing Organization Address [facility]/[place] Co de Phone Number [facility] [address] [place] [phone] * Influenza A (ID NOW Rapid Molecular) (10/05/2025 2:13 PM EST) Influenza A Negative Negative, Indeterminate [facility] Swab 10/05/2025 2:13 PM EST Piper Manuel MD POINT OF CARE ADENIKE T ENTER/EDIT ORDERABLES Final Result Performing Organization Address [facility]/[place] Co de Phone Number [facility] [address] [place] [phone] * POCT Rapid COVID Ag (10/05/2025 1:36 PM EST) Pathologist [facility] Rapid COVID Ag Negative Swab 10/05/2025 1:36 PM EST Piper Manuel MD POINT OF CARE ADENIKE T ENTER/EDIT ORDERABLES Final Result * Chlamydia/N. Gonorrhoeae, PCR, Urine (08/18/2025 3:08 PM EDT) [facility] CT PCR, Urine NOT DETECTED Not Detect. [facility] Comment:A not detected test result does not exclude the possibilityof infection because test results can be affected byimproper specimen collection, concurrent antibiotic therapy,or the number of organisms in the specimen which may bebelow the sensitivity of the test. As with many diagnostictests, results from the Xpert CT/NG assay should beinterpreted in conjunction with other laboratory andclinical data available to the clinician.The Xpert CT/NG assay should not be used for the evaluationof suspected sexual abuse or for other medico-legalindications. Additional testing is recommended in anycircumstance when false positive or false negative resultscould lead to adverse medical, social or psychologicalconsequences. NG PCR, Urine NOT DETECTED Not Detect. [facility] Comment:A not detected test result does not exclude the possibilityof infection because test results can be affected byimproper specimen collection, concurrent antibiotic therapy,or the number of organisms in the specimen which may bebelow the sensitivity of the test. As with many diagnostictests, results from the Xpert CT/NG assay should beinterpreted in conjunction with other laboratory andclinical data available to the clinician.The Xpert CT/NG assay should not be used for the evaluationof suspected sexual abuse or for other medico-legalindications. Additional testing is recommended in anycircumstance when false positive or false negative resultscould lead to adverse medical, social or psychologicalconsequences. Urine (Urine, Random) 08/18/2025 3:08 PM EDT 08/18/2025 6:30 PM EDT us Katherine Graef BAG WORKER LAB URINE ORDERABLES Final Resul t [facility] [address] [place] [address] [phone] * HEPATITIS C AB W/REFL TO HCV [...] a test for HCV RNA (test code 63891) is suggested. For additional information please refer to http://[employer]/faq/KBE28u5 (This link is being provided for informational/ educational purposes only.) 08/05/2022 11:3 3 AM EDT Andi Rodriguez MD HISTORICAL/NON ORD ERABLE LABS Final Result Performing Organization Address City/[facility]/[place] Co de Phone Number CONVERTED LEGACY LABS [...] purpose. For additional information please refer to http://[employer]/faq/TEN498 (This link is being provided for informational/ educational purposes only.) The performance of this assay has not been clinically validated in patients less than 2 years old. 08/05/2022 11:3 3 AM EDT Andi Rodriguez MD LAB BLOOD ORDERABL ES Final Result Performing Organization Address City/[facility]/ZIP Co de Phone Number CONVERTED LEGACY LABS [...] LDL-C. Daljit SS et al. ELVIE. 2013;310(19): 9906-6215 (http://education.[employer].com/faq/UWT748) Non-HDL Cholesterol 107 <130 mg/dL (calc) CONVERTED [...] Most Recently Relevant to Health Maintenance Insurance [facility] 3 Care Teams Account Classification Clerk Relationship Specialty Start Date End Date Andi Daly MD [address] [place] [phone] PCP - General Internal Medicine 03/18/20
--- OUTSIDE RECORDS SUMMARY | 2025-10-05 18:31 | XMS_ITS | Encounter Summary ---
Author Organization [employer] Address [address] [place] [address] [address] [place] [address] Care Team Providers Care Pathologist Name Role Phone Andi Daly MD Primary Care Prov ider Reason for Visit * Reason Onset Date Comments Appointment Request 01/12/2023 Encounter Details Date Type Department Care Team (Late st Contact Info) Description 01/12/2023 Telephone [facility] [address] [place] [address] Andi Daly MD [address] [place] [address] Appointment Request Social History Tobacco Use Types [...] appt for Physical. Please contact pt at [phone] documented in this encounter Plan of Treatment Upcoming Encounters Date Type Department Care Team (Late st Contact Info) Description 10/06/2025 8:45 AM EST Office Visit [facility] [address] [place] [address] Andi Daly MD [address] [place] [address] documented as of this encounter Visit Diagnoses Not on filedocumented in this encounter Additional Health Concerns Assessment Noted Time PHQ-9 Depression Total Score: 0 12/02/19 23 10:21 AM EST documented as of this encounter Care Teams Pathologist Relationship Specialty Start Date End Date Andi Daly MD [address] [place] [address] PCP - General Internal Medicine 03/18/20 documented as of this encounter
--- OUTSIDE RECORDS SUMMARY | 2025-10-05 18:31 | XMS_ITS | Encounter Summary ---
Author Organization [facility] Address [address] [place] [phone] Phone Care Team Providers Care Stage Electrician Helper Name Role Phone Shayan Vincent MD Primary Care Provider Unavailable Encounter Details Date Type Department Care Team (Late st Contact Info) Description 04/01/2023 Transcribe Orders [facility] [address] [place] [address] Jose Luis Herman MD [address] [facility] [address] [place] [address] Social History Tobacco Use Types Packs/Day Years [...] on filedocumented in this encounter Care Teams Stage Electrician Helper Relationship Specialty Start Date End Date Shayan Vincent MD PCP - General 02/11/23 documented as of this encounter Additional Source Comments The information contained in this document represents components of the legal health record. It is not the complete legal health record.[facility]
--- OUTSIDE RECORDS SUMMARY | 2025-10-05 18:31 | XMS_ITS | Encounter Summary ---
Author Organization [employer] Address [address] [facility] [address]t [place] [address] Care Team Providers Care Dimethylaniline Sulfator Operator Name Role Phone Andi Daly MD Primary Care Prov ider Reason for Visit * Reason Onset Date Comments Nurse Triage 08/16/2024 Encounter Details Date Type Department Care Team (Late st Contact Info) Description 08/16/2024 Telephone [facility] [address] [place] [address] Andi Daly MD [address] [place] [address] Nurse Triage Social History Tobacco Use Types [...] wheezing or difficulty breathing. ASK apt in [facility] today at 300pm. Home care reviewed. [...] Wheezing (high-pitched whistling sound) Contact pt at [phone] documented in this encounter Plan of Treatment Upcoming Encounters Date Type Department Care Team (Late st Contact Info) Description 10/06/2025 8:45 AM EST Office Visit [facility] [address] [place] [address] Andi Daly MD [address] [place] [address] documented as of this encounter Visit Diagnoses Not on filedocumented in this encounter Additional Health Concerns Assessment Noted Time PHQ-9 Depression Total Score: 19 023 10:28 AM EDT documented as of this encounter Care Teams Dimethylaniline Sulfator Operator Relationship Specialty Start Date End Date Andi Daly MD [address] [place] [address] PCP - General Internal Medicine 03/18/20 documented as of this encounter
--- OUTSIDE RECORDS SUMMARY | 2025-10-05 18:31 | XMS_ITS | Clinical Summary ---
Author Organization [facility] Address [address] [place] [phone] Phone Care Team Providers Care Seafood Process Worker Name Role Phone [facility] Primary Care Provider Unavailable Allergies No known active allergies Medications No known medications Active Problems No known active problems Encounters Date Type Department Care Team Description 08/15/2025 Transcribe Orders [facility] Rheumatology - Virtual Department [address] [place] [address] Amarilis Colmenares FNP Arthralgia (Primary Dx) from [...] topic Medical Devices Not on file [place] [address] [place] [address] C3 [facility] [address] [place] [address] [place] [address] [place] [address] [place] [address] C3 [employer] Care Teams Seafood Process Worker Relationship Specialty Start Date End Date CenterShayan MD PCP - General 02/11/23 Additional Source Comments The information contained in this document represents components of the legal health record. It is not the complete legal health record.[facility]
--- OUTSIDE RECORDS SUMMARY | 2025-10-05 18:31 | XMS_ITS | Encounter Summary ---
Author Organization [employer] Address [address] [place] [address] Care Team Providers Care Pool Lifeguard Name Role Phone Andi Daly MD Primary Care Prov ider Encounter Details Date Type Department Care Team (Latest Contact Info) Description 10/04/2025 Travel Social History Tobacco Use Types Packs/Day [...] as of this encounter Plan of Treatment Upcoming Encounters Date Type Department Care Team (Late st Contact Info) Description 10/06/2025 8:45 AM EST Office Visit [facility] MED & PEDS [address] [place] [address] Andi Daly MD [address] [place] [address] documented as of this encounter Visit Diagnoses Not on filedocumented in this encounter Additional Health Concerns Assessment Noted Time PHQ-9 Depression Total Score: 19 023 10:28 AM EDT documented as of this encounter Care Teams Pool Lifeguard Relationship Specialty Start Date End Date Andi Daly MD [address] [place] [address] PCP - General Internal Medicine 03/18/20 documented as of this encounter
--- OUTSIDE RECORDS SUMMARY | 2025-10-05 18:31 | XMS_ITS | Encounter Summary ---
Author Organization [employer] Address [address] [facility] 7t [place] [address] Care Team Providers Care Fuel Handler Name Role Phone Andi Daly MD Primary Care Prov ider Reason for Visit * Reason Onset Date Comments Nurse Triage 10/02/2025 Encounter Details Date Type Department Care Team (Late st Contact Info) Description 10/02/2025 Telephone [facility] [address] [place] [address] Andi Daly MD [address] [place] [address] Nurse Triage Social History Tobacco Use Types [...] encounter Miscellaneous Notes * Telephone Encounter - Lesa Newman RN - 10/05/2025 11:24 AM EST TC placed to pt for triage. Pt reports they went on a run the other day as they were trying to resume normal activities, and the day after they began to have worsening symptoms. Pt reports they had some green mucus yesterday morning. Pt denies green mucus since then. Pt reports they are concerned as ever since they were on prednisone about two months ago, they have been getting sick recurrently. Pt reports intermittent sharp pain in their right lung rated at 2- 3/10. Pt reports experiencing thisdiscomfort for the last couple of months. Pt reports they have a history of asthma and smoke cigarettes. Pt reports they had stopped smoking which improved the pain, but then they began smoking and pain has been intermittent since then. Pt reports worsening pain with deep inspiration. Pt denies fever or chills. Pt requesting sooner appointment with provider. Pt booked for sick on site with PCP tomorrow 10/06/25 at 8:45 AM. Pt advised if they develop chest pain, SOB, new or worsening symptoms toseek ED evaluation. Pt reports they are concerned about their symptoms. Pt reports they came to [place] and their vitals were normal. Pt reports they were told it would be a 2-3 hour wait. Pt reports they initially waited but went home and did not come back. Advised pr of [facility] hours today. Pt reports they may come to [facility] today for evaluation due to concern regarding symptoms. Pt advised to call office with any questions or concerns. Pt verbalized understanding and denies questions at this time. Protocol Used: No Protocol Available (Adult) Protocol-Based Disposition: See in Office or Video Visit Today or Tomorrow Video visit offer not recorded Positive Triage Question: * Nursing judgment * All higher-acuity triage questions were negative. * Telephone Encounter - Jeni Cody - 10/05/2025 11:05 AM EST TC from pt calling to see if he can be seen today instead of Thursday pt doesn't feel good and Thursdayis to far but he doesn't want to cancel appointment just in case we don't have nothing sooner. * Telephone Encounter - Veronica Aleman RN - 10/02/2025 3:32 PM EST TC to pt to triage for right sided lung pain. Pt states the symptoms have been present for a few months. He states he had many medical complications that were treated with different steroids. Since this treatment, he has not felt right . Pt also has a history of asthma. Pt states he is a heavy smoker, he stopped and this pain began, then when he started back up it was still present from time to time. Pt then stopped again but pain is still present. Pain comes and goes and is sharp pain, rated 2/10, very mild. States can linger for up to 5 minutes up to an hour depending. Denies any SOB, wheezing or chest pain, pain only in right side in rib/lung area. Pt would like to be seen by provider to ensure no concerning findings in lung. Pt scheduled with Dr. Guerrero on 10/09/25 at 11:15. Nurse advised pt that if he experiences chest pain, SOB or weakness to go to ED. Pt agrees to plan. Protocol Used: No Protocol Available (Adult) Protocol-Based Disposition: See in Office or Video Visit within 3 Days Video visit offer not recorded Positive Triage Question: * Nursing judgment * All higher-acuity triage questions were negative. Care Advice Discussed: * Reasons To Call Back - New symptoms develop - You become worse * Telephone Encounter - Kourtney Hoffman - 10/02/2025 2:37 PM EST Symptoms: Abdominal Pain - Male, Chest Congestion Outcome: Schedule an urgent appointment (within 1 hour) or talk to a nurse or provider soon Reason: Wheezing (high-pitched whistling sound) The caller accepted this outcome. Contact pt at [phone] documented in this encounter Plan of Treatment Upcoming Encounters Date Type Department Care Team ([facility] st Contact Info) Description 10/06/2025 8:45 AM EST Office Visit [facility] MED & PED[facility] [address] [place] [address] Andi Daly MD [address] [place] [address] documented as of this encounter Visit Diagnoses Not on filedocumented in this encounter Additional Health Concerns Assessment Noted Time PHQ-9 Depression Total Score: 19 023 10:28 AM EDT documented as of this encounter Care Teams Fuel Handler Relationship Specialty Start Date End Date Andi Daly MD [address] [place] [address] PCP - General Internal Medicine 03/18/20 documented as of this encounter
--- OUTSIDE RECORDS SUMMARY | 2025-10-05 18:31 | XMS_ITS | Encounter Summary ---
Author Organization [employer] Address [address] [facility] 7t [place] [address] Care Team Providers Care Outbound Sales Consultant Name Role Phone Andi Daly MD Primary Care Prov ider Encounter Details Date Type Department Care Team ([facility] st Contact Info) Description 09/29/2024 Telephone [facility] MEDICINE [address] [place] [address] Andi Daly MD [address] [place], [place] [phone] Social History Tobacco Use Types Packs/Day Years [...] 8:45 AM EST Office Visit [facility] MED & PEDS [address] [place] [address] Andi Daly MD [address] [place] [address] documented as of this encounter Visit Diagnoses Not on filedocumented in this encounter Additional Health Concerns Assessment Noted Time PHQ-9 Depression Total Score: 19 023 10:28 AM EDT documented as of this encounter Care Teams Outbound Sales Consultant Relationship Specialty Start Date End Date Andi Daly MD [address] [place] [address] PCP - General Internal Medicine 03/18/20 documented as of this encounter
--- OUTSIDE RECORDS SUMMARY | 2025-10-05 18:31 | XMS_ITS | Encounter Summary ---
Author Organization [email or web address] Address [address] [facility] 7t [place] [address] Care Team Providers Care Regulatory Leader Name Role Phone Andi Daly MD Primary Care Prov ider Reason for Visit * Reason Onset Date Comments In Person Nurse Triage 10/05/2025 Encounter Details Date Type Department Care Team (Late st Contact Info) Description 10/05/2025 Telephone [facility] MEDICINE [address] [place] [address] Andi Daly MD [address] [place] [address] In Person Nurse Triage Social History Tobacco Use Types [...] Encounter - Lesa Newman RN - 10/05/2025 12:31 PM EST Assessment: Patient [facility] c/o sharp/stabbing right lung pain x 1 month. Pt presented to [facility] yesterday and left before provider evaluation. Pt reports they completed their prednisone treatment approximately 6 weeks ago and symptoms have been present intermittently since. Pt reports they went on a run the other day as they were trying to resume normal activities, and the day after they began to have worsening symptoms. Pt reports yesterday they coughed up green sputum. Pt denies any SOB. Pt reports pain in right lung currently rated at 3/10 for pain. Pt reports symptoms were more intermittent but have since become more constant. Pt reports they stopped smoking marijuana which helped their symptoms, but they began smoking again and symptoms returned and are more consistent. Pt reports with deep inspiration they have pain in right lung both anterior and posterior. Pt reports concern regarding symptoms. Symptoms have been present for 1 month. VS as follows (if applicable): Temp 97.4 orally HR 79 Resp 16 none BP 132/86 left Arm; Device: Manual Cuff Size: regular O2 sat 98 % on room air Pain level: 3, Location: right side Allergies[1] Current Medications[2] Patient Active Problem List Diagnosis Date Noted Balanitis 08/18/2025 Dermatitis due to plant 08/01/2025 Lateral epicondylitis of left elbow 03/28/2024 Left elbow tendonitis 09/02/2023 Depression, unspecified 03/06/2023 Elevated blood pressure reading 02/25/2023 Annual physical exam 02/25/2023 Bipolar 1 disorder (CMS/HCC) (HCC) 02/05/2023 Moderate persistent asthma without complication 12/02/2022 Iron deficiency 12/02/2022 Muscle spasm 12/02/2022 Plan of care: RN consulted with as Dr. Oliver not in [facility] at time of consultation. states pt does not require EKG at this time. Patient to return to waiting room to await Provider evaluation in the order of arrival Advised of appointment with Dr. Oliver at 1:20 PM. Advised pt to inform of new or worsening symptomsto senior front end engineer staff. Pt agreeable to plan. Lesa Newman RN [1] No Known Allergies [2] Current Outpatient Medications Medication Sig Dispense Refill albuterol 108 (90 Base) MCG/ACT inhaler TAKE 2 PUFFS BY MOUTH EVERY 4-6 HOURS NEEDED 6.7 g 2 albuterol 108 (90 Base) MCG/ACT inhaler TAKE 2 PUFFS BY MOUTH EVERY 4-6 HOURS NEEDED 6.7 g 2 Blood Pressure kit 1 kit in the morning. 1 kit 0 diclofenac (Cataflam) 50 MG tablet Take 1 tablet (50 mg) by mouth 3 times daily. 90 tablet 0 fexofenadine (Rere) 180 MG tablet TAKE 1 TAB (180MG) BY MOUTH IF NEEDED EACH DAY (ALLERGIES). 90tablet 1 fluticasone (Flonase Sensimist) 27.5 MCG/SPRAY nasal spray Administer 1-2 sprays into each nostril Once per day. 10 g 2 ibuprofen 800 MG tablet TAKE 1 TABLET BY MOUTH 3 TIMES A DAY WITH FOOD NEEDED FOR PAIN 90 tablet2 predniSONE (Deltasone) 10 MG tablet 30mg x 5d then 20mg D6 to D10 then 10mg D11 to D15 then 5mg D16to D25 32 tablet 0 tadalafil (Cialis) 5 MG tablet Take 5 mg by mouth in the morning. No current facility-administered medications for this visit. documented in this encounter Plan of Treatment Upcoming Encounters Date Type Department Care Team ([facility] st Contact Info) Description 10/06/2025 8:45 AM EST Office Visit [facility] MED & PEDS [address] [place], [place] [phone] Andi Daly MD [address] [place], [place] [phone] documented as of this encounter Visit Diagnoses Not on filedocumented in this encounter Additional Health Concerns Assessment Noted Time PHQ-9 Depression Total Score: 19 023 10:28 AM EDT documented as of this encounter Care Teams Regulatory Leader Relationship Specialty Start Date End Date Andi Daly MD [address] [place] [id number] PCP - General Internal Medicine 03/18/20 documented as of this encounter
--- OUTSIDE RECORDS SUMMARY | 2025-10-05 18:31 | XMS_ITS | Encounter Summary ---
Author Organization [employer] Address [address] [facility] 7t [place] [address] Care Team Providers Care Odd Piece Checker Name Role Phone Andi Daly MD Primary Care Prov ider Reason for Visit * Reason Onset Date Comments in person triage 10/04/2025 Encounter Details Date Type Department Care Team (Late st Contact Info) Description 10/04/2025 Telephone [facility] [address] [place], [place] [phone] Elisa Huerta NP [address] [place] [address] in person triage Social History Tobacco Use Types Packs/Day Years [...] encounter Miscellaneous Notes * Telephone Encounter - Maria D Calix RN - 10/04/2025 3:24 PM EST Assessment: Patient [facility] c/o sharp pain in right lung was on prednisone x 6 weeks and coincided with end of taper. Reports this morning he coughed up green phlegm which has also subsided. Denies any shortness of breath or any other flu like symptoms using albuterol inhaler for rescue. Last used this morning. Symptoms have been present for 1 month. Symptoms are constant. Symptoms worsen with smoking.. VS as follows (if applicable): Temp 97.4 orally HR 77 Resp 16 BP 123/79 left Arm; Device: Automatic Cuff Size: large O2 sat 99 % on room air Pain level: 2, Location: right upper chest area, at worst 3-4 Lung sounds (if applicable) Clear to auscultation bilaterally, Location: throughout Plan of care: Report to Chichi Huerta Provider evaluation: No Patient to return to waiting room to await Provider evaluation in the order of arrival Maria D Calix RN documented in this encounter Plan of Treatment Upcoming Encounters Date Type Department Care Team (Late st Contact Info) Description 10/06/2025 8:45 AM EST Office Visit [facility] MED & PEDS [address] [place] [address] Andi Daly MD [address] [place] [address] documented as of this encounter Visit Diagnoses Not on filedocumented in this encounter Additional Health Concerns Assessment Noted Time PHQ-9 Depression Total Score: 19 023 10:28 AM EDT documented as of this encounter Care Teams Odd Piece Checker Relationship Specialty Start Date End Date Andi Daly MD [address] [place] [id number] PCP - General Internal Medicine 03/18/20 documented as of this encounter
--- OUTSIDE RECORDS SUMMARY | 2025-10-05 18:31 | XMS_ITS | Encounter Summary ---
Author Organization [employer] Address 75 [facility] 7t [place] [address] Care Team Providers Care Straight Pin Making Machine Operator Name Role Phone Andi Daly MD Primary Care Prov ider Reason for Visit * Reason Onset Date Comments Medication Question 08/30/2025 Encounter Details Date Type Department Care Team (Late st Contact Info) Description 08/30/2025 Telephone [facility] MEDICINE [address] [place] [address] Andi Daly MD [address] [place] [address] Medication Question Social History Tobacco Use Types Packs/Day Years [...] encounter Miscellaneous Notes * Telephone Encounter - Any Pizarro RN - 08/30/2025 3:26 PM EST Called pt regarding request for refill of fungal cream, for balanitis. spoke to pt. Pt states has used the cream as prescribed and the very small tube is now done. Pt also took the two pills as prescribed and is still having symptoms. Pt states was told the treatment would likely not be effective until off steroids which he completed 1 week ago. Pt requesting to have the cream refilled once more and was told from the pharmacy that it is too early until 09/06. Will task to PCP to see if an override can be done or any other recommendations. Pt understands and agrees with plan. * Telephone Encounter - Kevin Gruber - 08/30/2025 12:04 PM EST TC from pt reports miconazole (Micatin) 2 % cream will not be covered until 09/06/25. Pt is requesting for us to try to override or prescribe alternative medications documented in this encounter Plan of Treatment Upcoming Encounters Date Type Department Care Team (Late st Contact Info) Description 10/06/2025 8:45 AM EST Office Visit [facility] MED & PEDS [address] [place], [place] [phone] Andi Daly MD [address] [place] [address] documented as of this encounter Visit Diagnoses Not on filedocumented in this encounter Additional Health Concerns Assessment Noted Time PHQ-9 Depression Total Score: 19 023 10:28 AM EDT documented as of this encounter Care Teams Straight Pin Making Machine Operator Relationship Specialty Start Date End Date Andi Daly MD [address] [place] [id number] PCP - General Internal Medicine 03/18/20 documented as of this encounter
--- OUTSIDE RECORDS SUMMARY | 2025-10-05 18:31 | XMS_ITS | Encounter Summary ---
Author Organization [employer] Address [address] [facility] [address] [place] [address] Care Team Providers Care Linesperson Name Role Phone Andi Daly MD Primary Care Prov ider Encounter Details Date Type Department Care Team (Latest Contact Info) Description 10/05/2025 Travel Social History Tobacco Use Types Packs/Day [...] Description 10/06/2025 8:45 AM EST Office Visit [facility] MED & PEDS [address] [place] [address] Andi Daly MD [address] [place] [address] documented as of this encounter Visit Diagnoses Not on filedocumented in this encounter Additional Health Concerns Assessment Noted Time PHQ-9 Depression Total Score: 19 023 10:28 AM EDT documented as of this encounter Care Teams Linesperson Relationship Specialty Start Date End Date Andi Daly MD [address] [place] [address] PCP - General Internal Medicine 03/18/20 documented as of this encounter
== END 2025-10-05 14:19 | disposition home or self-care (01) ==
LOC: HO.HHCX 14:18
PROVIDERS: Visit Provider Student in an Organized Health Care Education/Training Program
DX: R07.81 Pleurodynia (principal); R05.9 Cough, unspecified
CPT/HCPCS: 71046

== ENCOUNTER → 2025-10-05 14:18 | Outpatient (BNV) | payer OTHER, SELFPAY | PROVIDERS: Visit Provider Radiology Diagnostic Radiology | DX: J84.9 Interstitial pulmonary disease, unspecified (principal); M47.814 Spondylosis without myelopathy or radiculopathy, thoracic region; M41.84 Other forms of scoliosis, thoracic region | CPT/HCPCS: 71046 ==

== ENCOUNTER 2025-10-05 14:28 | Outpatient (REF) | payer OTHER, SELFPAY ==
[2025-10-05 16:07] LABS: MANUAL DIFF FLAG NO
[2025-10-05 16:13] LABS: Hematocrit 42.3 % (42.0-52.0); Hemoglobin 14.0 g/dl (14.0-18.0); Imm Gran Abs Auto 0.01 X10*3/uL (0.00-0.03); Imm Gran Pct Auto 0.2 % (0.0-0.4); Lymphocytes Absolute Auto 1.7 X10*3/uL (1.2-4.9); Mean Corpuscular HGB Conc 33.1 g/dl (31.0-36.0); Mean Corpuscular Hemoglobin 29.4 pg (27.0-33.0); Mean Corpuscular Volume 88.9 fL (80.0-98.0); NRBC Abs Auto 0.000 X10*3/uL (0.0-0.012); NRBC Pct Auto 0.0 /100WBC (0.0-0.2); Platelet Count 224 X10*3/uL (160-400); Red Blood Count 4.76 X10*6/uL (4.60-5.80); White Blood Count 4.3 X10*3/uL (4.8-10.8)
[2025-10-05 16:46] LABS: Alanine Aminotransferase 39 U/L (0-40); Albumin Level 5.0 g/dL (3.5-5.0); Alkaline Phosphatase 46 U/L (39-117); Anion Gap 10 (12-20); Aspartate Amino Transferase 32 U/L (5-37); Blood Urea Nitrogen 18 mg/dL (9-16); Calcium 9.8 mg/dL (8.4-10.2); Carbon Dioxide 28 mmol/L (22-29); Chloride 105 mmol/L (96-108); Estimated Glomerular Filt Rate > 60; Potassium 4.6 mmol/L (3.3-5.1); Sodium 138 mmol/L (135-145); Total Protein 7.8 g/dL (6.5-8.0)
[2025-10-06 08:02] LABS: HBc Num1 0.06 S/CO (0.00-0.79); HBsAGNum1 0.68 S/CO (0.00-0.99); HIV Num 1 0.09 S/CO (0.00-0.99); Hepatitis B Surface Antigen Negative (Negative); ~HepC Num1 0.10 S/CO (0.00-0.79); ~Hepatitis B Surface Antibody REACTIVE (Nonreactive); ~Hepatitis C Antibody Nonreactive (Nonreactive)
[2025-10-06 08:38] LABS: Syphilis Screen Nonreactive (Nonreactive)
[2025-10-08 23:56] LABS: TS Negative Control Passed; TS Panel A 0; TS Panel B 0; TS Positive Control Passed; TSpotTB Negative (Negative)
== END 2025-10-05 14:29 | disposition home or self-care (01) ==
LOC: HO.HHCL 14:28
PROVIDERS: Registered Nurse; PCP Student in an Organized Health Care Education/Training Program; Visit Provider Student in an Organized Health Care Education/Training Program
DX: Z11.4 Encounter for screening for human immunodeficiency virus [HIV] (principal); Z11.1 Encounter for screening for respiratory tuberculosis; Z11.59 Encounter for screening for other viral diseases; M25.50 Pain in unspecified joint; R05.9 Cough, unspecified
CPT/HCPCS: 36415; 80053; 83036; 84443; 85025; 85379; 85652; 86140; 86200; 86431; 86481; 86704; 86706; 86780; 86803; 87340; 87389